=== PATIENT | male | born 1955 | race Caucasian/White ===

== ENCOUNTER → 2024-01-04 08:18 | Outpatient (REF) | payer MEDICARE, SELFPAY | LOC: RCS 08:18 | PROVIDERS: ATTENDING PHYSICIAN Internal Medicine Cardiovascular Disease; FAMILY PHYSICIAN Family Medicine | DX: R06.09 Other forms of dyspnea (principal) | CPT/HCPCS: 93017; 93350 ==

== ENCOUNTER → 2024-01-12 13:32 | Outpatient (REF) | payer MEDICARE, SELFPAY | LOC: RCS 13:32 | PROVIDERS: ATTENDING PHYSICIAN Internal Medicine Cardiovascular Disease; FAMILY PHYSICIAN Family Medicine | DX: R06.09 Other forms of dyspnea (principal) | CPT/HCPCS: 93306 ==

== ENCOUNTER → 2024-02-16 08:12 | Outpatient (REF) | payer MEDICARE, SELFPAY | LOC: RAD 08:12 | PROVIDERS: ATTENDING PHYSICIAN Family Medicine | DX: Z13.6 Encounter for screening for cardiovascular disorders (principal) | CPT/HCPCS: 75571 ==

== ENCOUNTER → 2024-02-17 12:31 | Outpatient (REF) | payer MEDICARE, SELFPAY | LOC: MRI 3T 12:31 | PROVIDERS: ATTENDING PHYSICIAN Otolaryngology; FAMILY PHYSICIAN Family Medicine | DX: H90.A21 Sensorineural hearing loss, unilateral, right ear, with restricted hearing on the contralateral side (principal) | CPT/HCPCS: 70553; A9575 ==

== ENCOUNTER → 2024-05-17 10:30 | Outpatient (REF) | payer MEDICARE, SELFPAY ==
[2024-05-17 11:38] LABS: ALT (SGPT) 26 U/L (0-50); AST (SGOT) 28 U/L (17-59); Albumin 4.6 g/dl (3.5-5.0); Alkaline Phosphatase 72 U/L (38-126); Blood Urea Nitrogen 16 mg/dl (9-20); Calcium 9.6 mg/dl (8.4-10.2); Carbon Dioxide 23 mmol/L (22-30); Chloride 102 mmol/L (98-107); Glucose 95 mg/dl (70-99); HDL Cholesterol 36 mg/dl; LDL Cholesterol, Calculated 25 mg/dl; Potassium 4.4 mmol/L (3.5-5.1); Sodium 138 mmol/L (135-145); Total Cholesterol 86 mg/dl (50-199); Total Protein 7.1 g/dl (6.3-8.2); Triglyceride 126 mg/dl (10-149); Very Low Density Lipoprotein 25 mg/dl (0-30); eGFR > 60.00
== END ==
LOC: REG 10:30
PROVIDERS: ATTENDING PHYSICIAN Family Medicine
DX: E78.5 Hyperlipidemia, unspecified (principal)
CPT/HCPCS: 36415; 80053; 80061

== ENCOUNTER 2024-08-26 13:23 | Inpatient (IN) | payer MEDICARE, SELFPAY ==
[2024-08-26] VITALS (15 sets, daily range): BP systolic 101–141; BP diastolic 61–110; BMI 31.3
[2024-08-26 08:05] LABS: % Basophils 0.4 % (0-2); % Eosinophils 0.1 % (0-6); % Immature Granulocytes 0.6 % (0-0.5); % Lymphocytes 7.2 % (20.5-51.1); % Monocytes 8.2 % (1.7-9.3); % Neutrophils 83.5 % (42.2-75.2); Absolute Basophils 0.1 10^3/uL (0-0.2); Absolute Immature Granulocytes 0.1 10^3/uL (0-0.05); Absolute Lymphocytes 0.9 10^3/uL (1.2-3.4); Hematocrit 36.1 % (39.0-52.0); Hemoglobin 12.3 g/dL (13.0-18.0); Mean Corp Hgb Conc. 34.1 g/dL (33.0-37.0); Mean Corpuscular Hgb 32.7 pg (27.0-31.0); Mean Platelet Volume 10.2 fL (7.4-10.4); Nucleated Red Blood Cells % 0 % (-); Platelet Count 246 10^3/uL (130-400); Red Blood Cell Count 3.76 10^6/uL (4.70-6.10); Red Cell Dist. Width 13.2 % (11.5-14.5)
[2024-08-26 08:17] LABS: ALT (SGPT) 37 U/L (0-50); AST (SGOT) 31 U/L (17-59); Albumin 4.1 g/dl (3.5-5.0); Alkaline Phosphatase 85 U/L (38-126); Blood Urea Nitrogen 18 mg/dl (9-20); Calcium 8.3 mg/dl (8.4-10.2); Carbon Dioxide 21 mmol/L (22-30); Chloride 98 mmol/L (98-107); Glucose 138 mg/dl (70-99); Lipase 55 U/L (23-300); Potassium 4.1 mmol/L (3.5-5.1); Sodium 132 mmol/L (135-145); Total Bilirubin 1.8 mg/dl (0.2-1.3); Total Protein 6.7 g/dl (6.3-8.2); eGFR > 60.00
[2024-08-26 08:27] LABS: Troponin I < 0.012 ng/ml
[2024-08-26 08:33] LABS: Urine Albumin 2+ (Neg - Trace); Urine Bilirubin Negative (Negative); Urine Character Clear (Clear); Urine Color Yellow; Urine Glucose Negative (Negative); Urine Ketone 2+ (Negative); Urine Leukocyte Negative (Negative); Urine Nitrite Negative (Negative); Urine Occult Blood Negative (Negative); Urine Specific Gravity 1.015 (<1.030); Urine Urobilinogen 2+ (Neg - 1+)
[2024-08-26 09:48] LABS: Urine Mucus Many
[2024-08-26 09:49] LABS: Urine Amorphous Seen
[2024-08-26 09:50] LABS: Urine Red Blood Cell 0-2 /HPF (0-2); Urine White Cell 0-2 /HPF (0-5)
--- NOTE | 2024-08-26 11:39 | ED.GENMED ---
History of Present Illness
General
Chief Complaint: Abdominal Pain
Time Seen by Provider: 08/26/24 09:08
History of Present Illness
History of Present Illness:
69-year-old male presents to the emergency department for evaluation of upper abdominal pain ongoing for the past week. He associates this with mild nausea but no vomiting. No diarrhea. He does have pain that radiates toward the chest whenever he
lies flat and pain is mildly pleuritic in nature. No fevers or chills. No prior abdominal surgeries.
Review of Systems
Review of Systems
Allergies reviewed?: Yes
All Other Systems: ROS reviewed and negative except as documented in HPI and ROS
Phy Exam
Physical Exam
Physical Exam:
GEN: Well appearing, NAD, WDWN
Eyes: PERRLA, EOMs intact, no scleral icterus
HENT: NCAT, oral mucosa moist
Lungs: CTAB, no wheezes, rales, rhonchi, normal chest wall excursion
Cardiac: RRR, no M/R/G, no peripheral edema. Radial pulses 2+ bilat
Abdomen: Soft, moderate right upper quadrant tenderness with positive Greer sign
Neuro: AO x 3
MSK: No gross deformity or ecchymosis. No edema. No digital clubbing
Skin: No rashes, petechiae. Normal color, no pallor or jaundice.
Psych: Calm, cooperative, proper hygiene
Course
Orders/Labs/Results
Orders:
Orders
08/26/24 07:33
Electrocardiogram (*1) Urgent
Reason for Study: Abdominal Pain
EKG- Treatment ONCE
08/26/24 07:49
C-Reactive Protein Urgent
Complete Blood Count/With Diff Urgent
Comprehensive Metabolic Panel Urgent
Erythrocyte Sed Rate Urgent
Lipase Urgent
Troponin I Urgent
Urinalysis Reflex To Culture Urgent
Date Specimen was Collected: 08/26/24
Time Specimen was Collected: 07:33
Urine Microscopic Reflex Cult Urgent
08/26/24 09:28
CT Abd/Pel (IV only)-DH only Urgent
Comment:
Reason For Exam: abd pain
08/26/24 11:25
Add On- LAB Urgent
Tests Added?: ESR, CRP
08/26/24 11:37
Piperacillin/Tazo 3.375 Gram [Zosyn] 3.375 gram in 50 ml IV NOW
08/26/24 11:40
Echo 2D MMode Color/Doppler Urgent
Reason for Study: large pericardial effusion on CT scan
Abnormal Lab Results
08/26/24
07:49
WBC 12.0 H 10^3/uL
(4.8-10.8)
RBC 3.76 L 10^6/uL
(4.70-6.10)
Hgb 12.3 L g/dL
(13.0-18.0)
Hct 36.1 L %
(39.0-52.0)
MCV 96.0 H fL
(80.0-94.0)
MCH 32.7 H pg
(27.0-31.0)
Abs Immat Gran (auto) 0.1 H 10^3/uL
(0-0.05)
Absolute Neuts (auto) 10.0 H 10^3/uL
(1.4-6.5)
Absolute Lymphs (auto) 0.9 L 10^3/uL
(1.2-3.4)
Absolute Monos (auto) 1.0 H 10^3/uL
(0.1-0.6)
Immature Gran % 0.6 H %
(0-0.5)
Neutrophils % 83.5 H %
(42.2-75.2)
Lymphocytes % 7.2 L %
(20.5-51.1)
Sodium 132 L mmol/L
(135-145)
Carbon Dioxide 21 L mmol/L
(22-30)
Glucose 138 H mg/dl
(70-99)
Calcium 8.3 L mg/dl
(8.4-10.2)
Total Bilirubin 1.8 H mg/dl
(0.2-1.3)
Urine Ketones 2+ A
(Negative)
Urine Urobilinogen 2+ A
(Neg - 1+)
Urine Albumin (Reflex) 2+ A
(Neg - Trace)
08/26/24 07:49
08/26/24 07:49
Vital Signs
Initial and Last Documented VS:
Initial Vital Signs
Temp Pulse Resp BP Pulse Ox
98.8 F 99 16 141/110 98
08/26/24 07:28 08/26/24 07:28 08/26/24 07:28 08/26/24 07:28 08/26/24 07:28
Last Documented Vital Signs
Temp Pulse Resp BP Pulse Ox
98.8 F 99 18 115/86 97
08/26/24 07:28 08/26/24 11:00 08/26/24 11:00 08/26/24 11:00 08/26/24 11:00
MDM/Problems Addressed
MDM/Problems Addressed:
I suspect the patient's acute abdominal pain is secondary to cholecystitis given the CT findings and focal tenderness. However incidentally he is noted to have a quite large pericardial effusion, at this time he is stable with no signs of cardiac
tamponade, will admit to the hospitalist service for IV antibiotics, consultations for general surgery as well as cardiology requested
*Critical Care Note
Total Time (30-74mins, 75-104mins- exclusive of procedures): Not Applicable
ED Attending Note
-
Portions of this chart may have been created with voice recognition software.� Occasional wrong word or��sound alike� substitutions may have occurred due to the inherent limitations of voice recognition software.
Discharge Plan
Departure
Patient Disposition: Admit
Date of Disposition: 08/26/24
Time of Disposition: 11:40
Admit to: Med/Surg
Presentation/result/management discussed w/ accepting /: Hospitalist
Discharge Problem:
Acute cholecystitis, Pericardial effusion
Prescriptions:
No Action
atorvastatin [Lipitor] 40 mg Tablet
40 mg PO QPM
alprazolam [Xanax] 0.25 mg Tablet
0.125 mg PO HS
sertraline 25 mg Tablet
37.5 mg PO DAILY
tadalafil 5 mg Tablet
5 mg PO DAILY
cyanocobalamin (vitamin B-12) 1,000 mcg Tablet
1,000 mcg PO DAILY
aspirin 81 mg Tablet,Delayed Release (Dr/Ec)
81 mg PO DAILY
acetaminophen [Tylenol Extra Strength] 500 mg Tablet
1,000 mg PO BIDPRN PRN (Reason: mild pain)
ascorbic acid (vitamin C) [Vitamin C] 500 mg Tablet
500 mg PO DAILY
calcium carbonate [Tums] 200 mg calcium (500 mg) Tablet,Chewable
200 mg PO BIDPRN PRN (Reason: gerd)
loratadine [Claritin] 10 mg Tablet
10 mg PO DAILY
cholecalciferol (vitamin D3) [Vitamin D3] 25 mcg (1,000 unit) Tablet
25 mcg PO DAILY
omeprazole 20 mg Tablet,Delayed Release (Dr/Ec)
20 mg PO DAILY
Referrals:
Benigno Matias DO [Family Provider] -
Interventions
Interventions:
*Risk Screen - Suicide Last Done: 08/26/24 07:28
ED- Fall Risk Assessment Last Done: 08/26/24 09:51
OH-Jnfsro-Fvcmunddge Assessment Last Done: 08/26/24 09:51
Discharge Date and Time
Print Language: SLOVAK
[2024-08-26] MEDS: ZOSYN 50 IV (11:44)
--- NOTE | 2024-08-26 12:08 | HPS.HSE ---
Family Physician
-
Family Physician: Benigno Matias
Chief Complaint
-
Shortness of breath x 1 month, chronic cough, right sided rib pain/abdominal pain post chiropractic, body aches
History of Present Illness
69-year-old male complaining of abdominal pain with bodyaches, occasional headache he states due to pain, nausea, lack of appetite. That started 8 days ago after a chiropractic adjustment. He states he normally does not have this typical kind of
adjustment where he appeared to be bent over with his neck in a downward position and the chiropractor pushed hardly between his shoulder blades. He states he went home then started developing right sided back and rib pain including right upper
quadrant pain. He states the pain has been on and off for the past 8 days varying in intensity causing nausea and lack of appetite. He has not had fever, chills, vomiting, diarrhea, constipation, chest pain, palpitations, urinary symptoms. He
does complain also of a chronic cough worse with lying down over the past week but shortness of breath persistent since having COVID in June 2024. He also complains of dyspnea on exertion since June. He denies any recent travel, sick
contacts. He is flu vaccinated. He did not have any recent COVID-vaccine.
He has past medical history of GERD, HLD, depression, anxiety, erectile dysfunction.
Medical History
Past Medical History
Past Medical History: Reports Other
Additional Past Medical History:
GERD
HLD
depression
anxiety
erectile dysfunction
Past Surgical History: Reports Tonsilectomy
Social History
Tobacco: Non-smoker
Alcohol: Occasional
Drug: None
Family History
Family History: Other (Mother in his sleep history of diabetes, father CAD CO CABG started age 33 age 57)
Allergies / Home Medications
Allergies reflects when Allergies were last updated in [facility].
Home Medications with original date entered in [facility]
Allergy/Medication List:
Allergies
Allergy/AdvReac Type Severity Reaction Status Date / Time
cefaclor [From [facility]] Allergy Unknown Verified 08/26/24 07:32
Sulfa (Sulfonamide Allergy Unknown Verified 08/26/24 07:32
Antibiotics)
Home Medications
acetaminophen 500 mg tablet (Tylenol Extra Strength) 1,000 mg PO BIDPRN PRN mild pain 08/26/24
alprazolam 0.25 mg tablet (Xanax) 0.125 mg PO HS 08/26/24
ascorbic acid (vitamin C) 500 mg tablet (Vitamin C) 500 mg PO DAILY 08/26/24
aspirin 81 mg tablet,delayed release 81 mg PO DAILY 08/26/24
atorvastatin 40 mg tablet (Lipitor) 40 mg PO QPM 08/26/24
calcium carbonate (Tums) 200 mg PO BIDPRN PRN gerd 08/26/24
cholecalciferol (vitamin D3) 25 mcg (1,000 unit) tablet (Vitamin D3) 25 mcg PO DAILY 08/26/24
cyanocobalamin (vitamin B-12) 1,000 mcg tablet 1,000 mcg PO DAILY 08/26/24
loratadine 10 mg tablet (Claritin) 10 mg PO DAILY 08/26/24
omeprazole 20 mg tablet,delayed release 20 mg PO DAILY 08/26/24
sertraline 25 mg tablet 37.5 mg PO DAILY 08/26/24
tadalafil 5 mg tablet 5 mg PO DAILY 08/26/24
Review of Systems
-
History Source: Patient
A 12 point ROS was completed and negative except as noted: Yes
Constitutional: Denies Fever, Fatigue or Chills
Cardiac: Denies Chest Pain, Diaphoresis, Palpitations or Syncope
Abdomen/GI: Reports Abdominal Pain and Nausea; Denies Vomiting, Diarrhea, Constipated, Bloody Stools or Black Stools
: Denies Dysuria, Frequency, Flank Pain, Incontinence, Difficulty Voiding or Urgency
Musculoskeletal: Denies Joint Pain or Edema
Skin: Denies Itching or Rash
Neurological: Denies Dizzy or Headache
Endocrine: Reports No Symptoms
Hematologic/Lymphatic: Reports No Symptoms
Psych: Reports Calm
Physical Exam
Vital Signs
Vital Signs
Temp Pulse Resp BP Pulse Ox
98.8 F 99 18 115/86 97
08/26/24 07:28 08/26/24 11:00 08/26/24 11:00 08/26/24 11:00 08/26/24 11:00
Physical Exam
General: Conversant, Pain (Right upper quadrant/rib area on deep palpation and with movement especially lying down) and Chills; No Fever
HEENT: NormoCephalic, Anicteric, Moist mucous membranes, PERRLA, [place] Conjunctivae, No Ptosis and Neck Nontender
Respiratory: Clear; No Wheezes, Rales or Rhonchi
Cardiac: S1/S2 and Regular Rhythm; No Murmur, Rub, Gallop or Peripheral Edema
Breast: Deferred by me
GI: Soft, Non Distended, Tender (Slight tenderness right upper quadrant just at level of lower rib) and No Hepatosplenomegaly
Genito-urinary: Deferred by me
Musculoskeletal: No Clubbing, No Cyanosis and No Edema
Skin: Warm and Dry; No Rash
Neuro: AO x 3, No Motor Deficits, Nonfocal/grossly intact, Cranial Nerves Intact and No Sensory Deficits; No Slurred Speech, Facial Droop, Tremors or Sedated
Psych: Calm
Laboratory Results
-
08/26/24 07:49
08/26/24 07:49
Laboratory Results
Total Bilirubin 1.8 mg/dl (0.2-1.3) H 08/26/24 07:49
AST 31 U/L (17-59) 08/26/24 07:49
ALT 37 U/L (0-50) 08/26/24 07:49
Alkaline Phosphatase 85 U/L (38-126) 08/26/24 07:49
Troponin I < 0.012 ng/ml 08/26/24 07:49
Lipase 55 U/L (23-300) 08/26/24 07:49
Impression/Plan
-
Impression/plan:
Admit to IVU
#Large pericardial effusion likely post viral(recent COVID infection 1 month ago June 2024)
#Possible new RBBB
-Consult [facility] cardiology
- Stat 2D echo
-CRP, ESR
-N.p.o. for Media/Instructional Designer to drain pericardial effusion with fluid analysis
-Will require likely 3 months of colchicine Cardiology to determine
EKG: Sinus rhythm with fusion complexes 98 bpm, QTc 497 MS, RBBB
2D echo 01/12/2024: EF 55%, normal LVS LVSF no wall abnormalities normal diastolic function, mild MR
CT abdomen pelvis with IV contrast only:
1. LARGE PERICARDIAL EFFUSION.
2. Small bilateral pleural effusions with accompanying bilateral lower lobe opacification compatible with subsegmental atelectasis and/or pneumonia.
3. Somewhat contracted gallbladder containing tiny stones and/or sludge. Cannot exclude gallbladder wall thickening or pericholecystic fluid. No findings to suggest biliary tract dilatation.
4 Consider Abdominal ultrasound for more complete evaluation, if clinically warranted.
5. mild hepatomegaly.
6. Descending colon and sigmoid diverticulosis, limited in evaluation without oral contrast. No intestinal obstruction or free air.
7. Unremarkable appendix.
8. 2.3 cm right renal cyst.
9. Small high attenuation density within nondilated distal small bowel, most likely differential diagnostic possibilities would be undigested medication, gallstone or foreign body.
#Acute right-sided abdominal pain likely secondary to chiropractic adjustment
WBC 12 with left shift, HR 99, 98.8F, 115/86
-IV Zosyn was given in ER based on CT abdomen concern for possible cholecystitis given Pericholecystic fluid
Abdominal ultrasound shows single gallstone, gallbladder wall thickening, no tenderness on exam, no dilated ducts
#GERD
Iv Protonix 40 mg daily patient takes omeprazole 20 mg p.o. daily
#HLD
Check lipid profile
Continue atorvastatin 40 mg every afternoon
#Depression/anxiety
Continue Zoloft 37.5 mg daily, Xanax 0.125 mg p.o. at bedtime
DVT prophylaxis
SCDs
Full code
[2024-08-26 12:40] LABS: Erythrocyte Sed Rate 51 mm/hour (0-20)
--- NOTE | 2024-08-26 12:42 | CON.CAR ---
Addendum entered and electronically signed by Sterling Torres MD 08/26/24 14:03:
69-year-old man with hyperlipidemia, right bundle branch block, GERD, BPH and an elevated coronary artery calcium score with abdominal distention, nausea and left costal margin pain temporally related to manipulation by chiropractor. CT of abdomen
and pelvis obtained when he presented to the emergency department after seeing Dr. Matias in the digital producer hours showed a contracted gallbladder possibly with stones but a large pericardial effusion. Echocardiography thereafter confirmed a
large pericardial effusion with evidence of hemodynamic compromise, with right ventricular diastolic collapse. Pulmonary hypertension presents. Pericardial effusion circumferential and up to 2.9 cm in depth. He has a cough, mild dyspnea on
exertion, perhaps mild left shoulder discomfort worse supine though this is equivocal. He had COVID in June
PMH: As listed above
SH: , children, retired from executive position at [employer], was planning to travel to [facility] in a.m.
PSH: Tonsillectomy, third molar extraction
Non-smoker, occasional alcohol
FH: Noncontributory
Allergies: Sulfa and cephalosporins
Meds: Per summary sheet
115/86, pulse 99, respirate 18, head neck exam unremarkable lungs with minimal decrease in bases, relatively soft heart tones, possible soft friction rub, though equivocal, JVD probably at least 10-15, abdomen nontender, slightly distended, not much
lower extremity edema
White count 12, hemoglobin 12.3, platelets 246, sed rate 51, sodium 132, CO2 21, BUN and creatinine 18 and 0.9, C-reactive protein 205, undetectable troponin good
ECG sinus rhythm right bundle, left axis impression:
Echo: As described above
Impression:
Large pericardial effusion/early tamponade
Recent COVID infection
Right bundle branch block
Hyperlipidemia
GERD
Plan:
He presents with early tamponade presumably precipitated by COVID in June of this year. This may account for symptoms of nausea, bloating etc. At this point for step will be pericardiocentesis. He will need colchicine.
Management of possible cholecystitis per primary team. Suspect symptoms may resolve post pericardiocentesis.
Further management to be determined by his clinical course.
Original Note:
Consultation
Consultation Request
Date/Time Consultation Requested: 08/26/2024
Date/Time Consultation Performed: 08/26/2024
Requesting Provider: Judi SHARMA
Performing Provider: Marielena Islas PA-C for Dr. MYLA Torres
Reason for Consultation: Large pericardial effusion
Medical History
-
History of Present Illness:
HPI: Sterling is a 69 year old male with PMH of HLD, elevated coronary calcium score, RBBB, GERD, BPH, and anxiety who presented to [facility] for evaluation of nausea and abdominal pain. He has had no vomiting or diarrhea. Does note some pain that radiates
into chest, worse with lying flat. Denies any fevers or chills. Denies any dizziness or lightheadedness. In ER, CT of abdomen and pelvis showed contracted gallbladder containing stones and/or sludge as well as large pericardial effusion. Given large
pericardial effusion, cardiology consulted and order was placed for urgent echo. Echo revealed large circumferential pericardial effusion with some evidence of RV compression. BP has been stable, but HR is mildly elevated. He feels well currently
but with lying back begins to cough. Notes he has had a cough and some increased SOB since having Covid June 2024.
PMH:
HLD
Elevated coronary calcium score
Family h/o CAD
RBBB
GERD
BPH
Anxiety
Past Medical History
Past Medical History: Other (In HPI)
Past Surgical History: Tonsilectomy and Other (wisdom tooth removal)
Social History
Tobacco: Non-Smoker
Alcohol: Occasional
Drug: None
Living: With Family
Family History
Family History: CAD and Diabetes
Allergies / Home Medications
Allergy/AdvReac Type Severity Reaction Status Date / Time
cefaclor [From Ceclor] Allergy Unknown Verified 08/26/24 07:32
Sulfa (Sulfonamide Allergy Unknown Verified 08/26/24 07:32
Antibiotics)
�Medication �Instructions �Recorded �Confirmed �Type
acetaminophen 500 mg tablet 1,000 mg PO BIDPRN PRN mild pain 08/26/24 08/26/24 History
(Tylenol Extra Strength)
alprazolam 0.25 mg tablet (Xanax) 0.125 mg PO HS 08/26/24 08/26/24 History
ascorbic acid (vitamin C) 500 mg 500 mg PO DAILY 08/26/24 08/26/24 History
tablet (Vitamin C)
aspirin 81 mg tablet,delayed 81 mg PO DAILY 08/26/24 08/26/24 History
release
atorvastatin 40 mg tablet (Lipitor) 40 mg PO QPM 08/26/24 08/26/24 History
calcium carbonate (Tums) 200 mg PO BIDPRN PRN gerd 08/26/24 08/26/24 History
cholecalciferol (vitamin D3) 25 25 mcg PO DAILY 08/26/24 08/26/24 History
mcg (1,000 unit) tablet (Vitamin
D3)
cyanocobalamin (vitamin B-12) 1,000 mcg PO DAILY 08/26/24 08/26/24 History
1,000 mcg tablet
loratadine 10 mg tablet (Claritin) 10 mg PO DAILY 08/26/24 08/26/24 History
omeprazole 20 mg tablet,delayed 20 mg PO DAILY 08/26/24 08/26/24 History
release
sertraline 25 mg tablet 37.5 mg PO DAILY 08/26/24 08/26/24 History
tadalafil 5 mg tablet 5 mg PO DAILY 08/26/24 08/26/24 History
Review of Systems
-
History Source: Patient
All other systems: Negative unless noted
Physical Exam
Vital Signs
Temp Pulse Resp BP Pulse Ox
98.8 F 99 18 115/86 97
08/26/24 07:28 08/26/24 11:00 08/26/24 11:00 08/26/24 11:00 08/26/24 11:00
Lab Results
08/26/24 07:49
08/26/24 07:49
Troponin I < 0.012 ng/ml 08/26/24 07:49
Physical Exam
General: Well Developed, Well Nourished and No Apparent Distress
HEENT: Normocephalic, Anicteric and Moist Mucous Membranes
Respiratory: Clear and Non Labored Respirations
Cardiac: S1/S2 and Regular Rhythm
Musculoskeletal: No Clubbing, No Cyanosis and No Edema
Skin: Warm and Dry
Neuro: AO x 3 and Nonfocal/Grossly Intact
Psych: Calm
Impression / Plan
-
PCP: Dr. Matias
Director Investor Relations: Dr. Duncan
Impression:
Presented with RUQ abdominal pain, nausea, and SOB
Large circumferential pericardial effusion
HLD
Elevated coronary calcium score
Family h/o CAD
RBBB
GERD
BPH
Anxiety
Echo 01/12/2024: EF 55%, mild MR, upper normal aortic root for body surface area
Echo 08/26/2024: Study completed, official report pending.
Plan:
-Presented with abdominal pain, nausea, and SOB. Found to have large pericardial effusion on CT of abdomen/pelvis resulting in cardiology consult.
-Urgent echo ordered and revealed large circumferential pericardial effusion w/ evidence of RV collapse.
-BP stable, but HR somewhat elevated. Will plan to take to field laborer for pericardiocentesis.
-Also concern for possible cholecystitis by CT of abdomen and pelvis, however less likely based on exam. Abdominal US ordered by primary service.
-Suspect symptoms mostly related to pericardial effusion.
-ESR elevated at 51, CRP pending.
-He did have Covid 06/2024. No URI symptoms currently.
-ECG reviewed. SR with RBBB. HR 98 bpm.
-Troponin negative x 1.
-Further recommendations to be made post-pericardiocentesis.
HPI: Sterling is a 69 year old male with PMH of HLD, elevated coronary calcium score, RBBB, GERD, BPH, and anxiety who presented to [facility] for evaluation of nausea and abdominal pain. He has had no vomiting or diarrhea. Does note some pain that radiates
into chest, worse with lying flat. Denies any fevers or chills. Denies any dizziness or lightheadedness. In ER, CT of abdomen and pelvis showed contracted gallbladder containing stones and/or sludge as well as large pericardial effusion. Given large
pericardial effusion, cardiology consulted and order was placed for urgent echo. Echo revealed large circumferential pericardial effusion with some evidence of RV compression. BP has been stable, but HR is mildly elevated. He feels well currently
but with lying back begins to cough. Notes he has had a cough and some increased SOB since having Covid June 2024.
Data Reviewed
-
EKG: Tracing Personally Visualized and interpreted
CT Scan: Report Reviewed by me
Medical Tests (Nuc Med, Echo etc): Discussed with Physician
Labs: Labs Reviewed by me
Old Records: Reviewed
[2024-08-26 13:37] LABS: COVID-19 Antigen Negative (Negative)
--- NOTE | 2024-08-26 14:21 | CON.GS ---
Addendum entered and electronically signed by Shwan Waldron MD 08/26/24 18:02:
Patient seen and examined independently of surgical nurse practitioner. Agree with documented consultation consistent with my current evaluation this evening with additions/details noted here.
HPI: 69-year-old male presenting to the emergency department secondary to a 2-week history of progressive epigastric/substernal/left upper quadrant abdominal pain, dry cough, anorexia and mild nausea. His symptoms have been rather slow and
insidious in onset over this time period. It is not worse by eating or postprandial nature. He has generally been eating less secondary to lack of appetite but not out of food aversion due to pain. No similar episodes like this in the past. He
did recently have COVID in June and he was initially thinking that he was having similar rebound symptoms this month or possible reinfection. Presented to the emergency department secondary to severity and persistence of his symptoms. General
surgery consultation requested after CT imaging identified possible gallbladder thickening/pericholecystic fluid.
Subsequent ultrasound of the abdomen was obtained identifying 1 gallstone within the gallbladder body but no stone in the neck. Some gallbladder wall thickening but no pericholecystic fluid. Negative sonographic Greer sign. No biliary ductal
dilation.
At the time of this current evaluation post pericardiocentesis the patient reports significant relief of his presenting symptoms. He is beginning to eat his dinner tray.
PMH: GERD, BPH, hyperlipidemia, recent COVID. No past abdominal surgical history
Temperature 102.5, vital signs stable
No acute distress awake alert oriented x 3, daughter is at bedside.
Abdomen: Soft, nondistended, mild tenderness palpation left side and epigastrium. No tenderness palpation right upper quadrant. Negative Greer sign. No palpable right upper quadrant fullness or mass.
Assessment/plan: 69-year-old male with large pericardial effusion/early tamponade, recent COVID infection and abnormal imaging of the gallbladder
Clinically improved after pericardiocentesis
I suspect the gallbladder thickening identified on imaging studies may be reflective of hepatic congestion in the setting of his large pericardial effusion and early tamponade and therefore reactive in nature rather than a primary gallstone mediated
pancreatitis.
Gallbladder will be followed expectantly
Diet as tolerated
If future concerns regarding possible gallbladder pathology would obtain HIDA scan however at this point there are no clinical indications to pursue further gallbladder testing/evaluations
Signing off, please call if we can be of further assistance with patient's care during hospitalization
Original Note:
Medical History
-
Chief Complaint: epigastric discomfort
History of Present Illness:
Mr Salas is a 69 yo male with a h/o GERD, BPH, HLD and recent covid infection last month who presents with dry cough and epigastric pain across his upper abdomen acutely worsening over the past week accompanied by nausea and anorexia. He does not
note an association with food but does feel that the pain is more positional and is worse when he lies flat. He denies bladder or bowel changes. He denies fevers or chills. On exam, he is tender to the upper abdomen lower thoracic area left side
worse than right side.
Past Medical History
Past Medical History: GERD, Hypercholesterolemia and Other (rBBB. BPH)
Past Surgical History: Tonsilectomy
Social History
Tobacco: Non-Smoker
Alcohol: None
Family History
Family History: Reviewed & Not Pertinent
Allergies / Home Medications
Allergy/AdvReac Type Severity Reaction Status Date / Time
cefaclor [From Ceclor] Allergy Unknown Verified 08/26/24 07:32
Sulfa (Sulfonamide Allergy Unknown Verified 08/26/24 07:32
Antibiotics)
�Medication �Instructions �Recorded �Confirmed �Type
acetaminophen 500 mg tablet 1,000 mg PO BIDPRN PRN mild pain 08/26/24 08/26/24 History
(Tylenol Extra Strength)
alprazolam 0.25 mg tablet (Xanax) 0.125 mg PO HS 08/26/24 08/26/24 History
ascorbic acid (vitamin C) 500 mg 500 mg PO DAILY 08/26/24 08/26/24 History
tablet (Vitamin C)
aspirin 81 mg tablet,delayed 81 mg PO DAILY 08/26/24 08/26/24 History
release
atorvastatin 40 mg tablet (Lipitor) 40 mg PO QPM 08/26/24 08/26/24 History
calcium carbonate (Tums) 200 mg PO BIDPRN PRN gerd 08/26/24 08/26/24 History
cholecalciferol (vitamin D3) 25 25 mcg PO DAILY 08/26/24 08/26/24 History
mcg (1,000 unit) tablet (Vitamin
D3)
cyanocobalamin (vitamin B-12) 1,000 mcg PO DAILY 08/26/24 08/26/24 History
1,000 mcg tablet
loratadine 10 mg tablet (Claritin) 10 mg PO DAILY 08/26/24 08/26/24 History
omeprazole 20 mg tablet,delayed 20 mg PO DAILY 08/26/24 08/26/24 History
release
sertraline 25 mg tablet 37.5 mg PO DAILY 08/26/24 08/26/24 History
tadalafil 5 mg tablet 5 mg PO DAILY 08/26/24 08/26/24 History
Review of Systems
-
History Source: Patient and Family
All other systems: Negative unless noted
A 10 point review of systems was completed, and was negative except as per HPI.
Physical Exam
Vital Signs
Temp Pulse Resp BP Pulse Ox
98.8 F 99 18 115/86 97
08/26/24 07:28 08/26/24 11:00 08/26/24 11:00 08/26/24 11:00 08/26/24 11:00
08/25/24 08/26/24 08/27/24
06:59 06:59 06:59
Actual Weight 99 kg
Body Mass Index (BMI) 31.3
Lab Results
08/26/24 07:49
08/26/24 07:49
WBC 12.0 10^3/uL (4.8-10.8) H 08/26/24 07:49
Hgb 12.3 g/dL (13.0-18.0) L 08/26/24 07:49
Hct 36.1 % (39.0-52.0) L 08/26/24 07:49
Plt Count 246 10^3/uL (130-400) 08/26/24 07:49
Abs Immat Gran (auto) 0.1 10^3/uL (0-0.05) H 08/26/24 07:49
Neutrophils % 83.5 % (42.2-75.2) H 08/26/24 07:49
Physical Exam
General: Well Developed and Well Nourished
HEENT: Moist Mucous Membranes
Respiratory: Other (dry spastic cough with speech)
GI: Soft and Tender (LUQ>RUQ)
Skin: Warm and Dry
Neuro: Awake, Alert and AO x 3
Psych: Calm
Data Reviewed
-
CT Scan: Image Personally Visualized and interpreted, Report Reviewed by me, Discussed with Physician, Discussed with Nurse, Discussed with Patient and Discussed with Family
Labs: Labs Reviewed by me, Discussed with Physician, Discussed with Nurse, Discussed with Patient and Discussed with Family
Old Records: Reviewed
Assessment / Plan
-
69 yo male with a h/o GERD, BPH, HLD and recent covid infection last month who presents with dry cough and epigastric pain radiating across his upper abdomen predominantly on the left side which has been acutely worsening over the past week after a
chiropractic adjustment and accompanied by nausea and anorexia.
Cardiology following for early tamponade and pericardial effusion with pericardiocentesis planned today.
Cholelithiasis with gallbladder wall thickening noted on US as well as CT imaging. Greer's sign is negative on exam and US. He does have mild RUQ tenderness with nausea/anorexia; however the majority of his pain is to the left side. Mild
leukocytosis, afebrile. Bilirubin elevated to 1.8. Mild tachycardia present. Low suspicion for acute gallbladder pathology.
--Fractionate bilirubin, follow LFT's
--May need HIDA scan if symptoms not improving, will hold off for now
[2024-08-26 15:12] LABS: Direct Bilirubin 0.9 mg/dl (0.0-0.4)
--- NOTE | 2024-08-26 15:47 | ITS.CL.CATH ---
Customs Appraiser - Catheterization
Cardiac Catheterization
Procedure Report:
PERICARDIOCENTESIS REPORT
DATE: August 26, 2024
REFERRING: Dr. Sterling Torres
INDICATIONS: Large symptomatic pericardial effusion
PROCEDURAL DETAILS: Informed consent was obtained. A subxiphoid approach was utilized to gain access to the pericardial space with a micropuncture needle. Agitated saline contrast was injected to confirm appropriate positioning of the needle
within the pericardial space. The Stiffen wire and micro puncture sheath were inserted over the guidewire and into the pericardial space. The micropuncture sheath was removed and exchanged for a 6 Mohawk sheath and the pigtail catheter was then
advanced to the pericardial space. A total of 850 mL of bloody pericardial fluid was removed and ultrasound imaging during and postprocedure confirmed near resolution of the large pericardial effusion. The intrapericardial pressure at the
beginning of the procedure measured 22 mmHg. The intrapericardial pressure at the conclusion of the procedure with nearly all fluid removed moved measured 15 mmHg. The pericardial fluid was sent for appropriate cytology, culture, and chemistries
RADIATION SUMMARY: Fluoro Time (min): 0.2, Dose (mGy): 5.0, DAP (Gy.cm2) : 0.70
CONCLUSIONS:
1. Successful echocardiographic guided pericardiocentesis utilizing subxiphoid approach with removal of 850 mL of bloody pericardial fluid
RECOMMENDATIONS:
1. The 6 Mohawk sheath in pigtail catheter were sewn in position
Copy to: Dr. Sterling Torres
[2024-08-26 16:13] LABS: Body Fluid Glucose 94 mg/dl; Body Fluid LDH > 1000 U/L; Body Fluid Protein 6.3 g/dl
[2024-08-26] MEDS: TYLENOL 1000 MG PO (17:01)
[2024-08-26] MEDS: LIPITOR 40 MG PO (17:01)
[2024-08-26 18:24] LABS: Body Fluid Hematocrit 4.1 %
[2024-08-26 18:32] LABS: Body Fluid Granulocytes 50 %; Body Fluid Lymphocytes 41 %; Body Fluid Macrophages 9 %; Body Fluid WBC 2805 /CUMM
[2024-08-26 18:35] LABS: Body Fluid Second Tech EYM
--- NOTE | 2024-08-26 18:49 | PTCARENOTE ---
"Pt received from laboratory chemical assistant post pericardiocentesis, sub xiphoid dressing dry and intact, no sign of bleeding or hematoma, drain to gravity with minimal sanguinous drainage. Pt reports mild upper abdominal discomfort and has a temp of 102.5, "Frederick"Tay notified. Pt given tylenol. Pt OOB but he was slightly unsteady due to vestibulitis, he will call for assistance. Telemetry shows sinus rhythm @ rate @ 90's."
--- NOTE | 2024-08-26 22:05 | W.PN.UPDATE ---
Update Note
Progress Note Update
Attending note
Patient seen independently.
69-year-old man comes in complaining of abdominal pain, with body aches, occasional headache, nausea, and lack of appetite. Symptoms started 8 days ago after a chiropractic adjustment. The pain has been on and off for the past 8 days, in varying
intensity causing nausea and lack of appetite. He denies fever, chills, vomiting, diarrhea, constipation, chest pain, palpitations, urinary symptoms. He also complains of a cough worse with lying down. He has had shortness of breath persistent
since having COVID in June 2024. With dyspnea on exertion since June. He denies any recent travel, sick contacts. He is flu vaccinated. In the ED he had an echo that showed:
1. Borderline small left ventricle with preserved systolic function, EF 60-65%
2. Trace mitral regurgitation
3. Aortic sclerosis without stenosis or regurgitation
4. Dilated right ventricle with diastolic collapse of the right ventricular free wall.
Pulmonary artery systolic pressure is 50-55 mmHg
5. Large pericardial effusion with evidence of hemodynamic compromise and marked fibrinous thickening of the visceral pericardium
6. The IVC is dilated and does not collapse with respiration
Findings of pericardial effusion and hemodynamic compromise are new since the echo of March 2024.
CT in ER showed:
LARGE PERICARDIAL EFFUSION.
Small bilateral pleural effusions with accompanying bilateral lower lobe opacification compatible with subsegmental atelectasis and/or pneumonia.
Somewhat contracted gallbladder containing tiny stones and/or sludge. Cannot exclude gallbladder wall thickening or pericholecystic fluid. No findings to suggest biliary tract dilatation. Consider Abdominal ultrasound for more complete evaluation,
if clinically warranted.
Mild hepatomegaly.
Descending colon and sigmoid diverticulosis, limited in evaluation without oral contrast. No intestinal obstruction or free air.
Unremarkable appendix.
2.3 cm right renal cyst.
Small high attenuation density within nondilated distal small bowel, most likely differential diagnostic possibilities would be undigested medication, gallstone or foreign body.
The patient went to the labor relations representative to have the effusion drained. Report from the labor relations representative:
CONCLUSIONS:
1. Successful echocardiographic guided pericardiocentesis utilizing subxiphoid approach with removal of 850 mL of bloody pericardial fluid.
Past Medical History:
GERD
HLD
depression
anxiety
erectile dysfunction
Physical Exam
General: Conversant, Pain (Right upper quadrant/rib area on deep palpation and with movement especially lying down) and Chills; No Fever
HEENT: NormoCephalic, Anicteric, Moist mucous membranes, PERRLA, [place] Conjunctivae, No Ptosis and Neck Nontender
Respiratory: Clear; No Wheezes, Rales or Rhonchi
Cardiac: S1/S2 and Regular Rhythm; No Murmur, Rub, Gallop or Peripheral Edema
GI: Soft, Non Distended, Tender (Slight tenderness right upper quadrant just at level of lower rib) and No Hepatosplenomegaly
Psych: Calm
Impression/plan:
S/P pericardiocentesis - Admit to IVU
1. Large pericardial effusion, likely post viral (recent COVID infection 1 month ago June 2024)
Possible new RBBB
Consulted [facility] cardiology (appreciated)
Follow up care per cardiology
2. CT abdomen pelvis with IV contrast showing multiple findings
Review findings and make sure all are followed up as appropriate as outpatient
3. Acute right-sided abdominal pain likely secondary to chiropractic adjustment
Follow
Avoid further adjustments
Please see engine manager note for full details on:
GERD
HLD
Depression/anxiety
DVT prophylaxis SCDs
Full code
[2024-08-26] MEDS: XANAX 0.125 MG PO (22:47)
--- NOTE | 2024-08-27 01:52 | PTCARENOTE ---
Assumed care of the pt @1900. Pt AAOx3 SR on the monitor. VSS afeb Pericardial drain to gravity sm amt sanguineous. dressing with sm amt bloody drainage with marker outline. Call fields within reach
[2024-08-27 02:33] VITALS: BP 125/90
[2024-08-27] MEDS: TYLENOL 1000 MG PO ×2 (02:48→10:06)
[2024-08-27 03:04] LABS: % Basophils 0.5 % (0-2); % Eosinophils 1.2 % (0-6); % Immature Granulocytes 0.3 % (0-0.5); % Lymphocytes 14.7 % (20.5-51.1); % Monocytes 9.1 % (1.7-9.3); % Neutrophils 74.2 % (42.2-75.2); Absolute Eosinophils 0.1 10^3/uL (0-0.7); Absolute Lymphocytes 1.1 10^3/uL (1.2-3.4); Absolute Monocytes 0.7 10^3/uL (0.1-0.6); Absolute Neutrophils 5.8 10^3/uL (1.4-6.5); Hematocrit 37.7 % (39.0-52.0); Hemoglobin 12.8 g/dL (13.0-18.0); Mean Corpuscular Hgb 32.7 pg (27.0-31.0); Mean Corpuscular Volume 96.4 fL (80.0-94.0); Mean Platelet Volume 10.1 fL (7.4-10.4); Nucleated Red Blood Cells % 0 % (-); Platelet Count 237 10^3/uL (130-400); Red Blood Cell Count 3.91 10^6/uL (4.70-6.10); Red Cell Dist. Width 13.2 % (11.5-14.5); White Blood Cell Count 7.8 10^3/uL (4.8-10.8)
[2024-08-27 03:09] VITALS: BMI 29.3
[2024-08-27 03:27] LABS: ALT (SGPT) 41 U/L (0-50); AST (SGOT) 35 U/L (17-59); Albumin 4.3 g/dl (3.5-5.0); Alkaline Phosphatase 90 U/L (38-126); Blood Urea Nitrogen 18 mg/dl (9-20); Calcium 8.8 mg/dl (8.4-10.2); Carbon Dioxide 23 mmol/L (22-30); Chloride 100 mmol/L (98-107); Estimated Creatinine Clearance 87 ml/min; Glucose 117 mg/dl (70-99); HDL Cholesterol 29 mg/dl; LDL Cholesterol, Calculated 25 mg/dl; Potassium 4.1 mmol/L (3.5-5.1); Sodium 137 mmol/L (135-145); Total Bilirubin 1.6 mg/dl (0.2-1.3); Total Cholesterol 68 mg/dl (50-199); Total Protein 7.2 g/dl (6.3-8.2); Triglyceride 72 mg/dl (10-149); Very Low Density Lipoprotein 14 mg/dl (0-30); eGFR > 60.00
[2024-08-27 04:16] LABS: Hepatitis C Antibody Negative (Negative)
--- NOTE | 2024-08-27 07:13 | W.PN.HOSP.TC ---
Addendum entered and electronically signed by Madelyn Briceno MD 08/27/24 15:28:
I saw and evaluated the patient independently. I reviewed the resident�s note and agree with findings and plan as documented by Dr. Mijares.
GENERAL: well developed, well nourished, male in no apparent distress
HEENT: NC/AT
HEART: regular rate and rhythm, +S1, +S2--pericardial drain in place, leaking
LUNGS : clear to auscultation bilaterally
ABDOM: soft, nontender, nondistended, + bowel sounds
EXT: no cyanosis, clubbing, or edema
NEUROLOGIC: grossly intact
Pericardial effusion--S/p pericardiocentesis with drain--suspect due to post infection from COVID in June--Echo was done with evidence of hemodynamic compromise--Removal of 850 mL of bloody pericardial fluid, pericardial drain placed--Elevated
ESR at 51, CRP at 205--cultures pending--Follow-up echo on Thursday--Hemoglobin stable at 12.8--Start ibuprofen, colchicine
Abdominal pain--CT abdomen pelvis showed evidence of gallbladder thickening,contracted gallbladder containing tiny stones and/or sludge--Surgery consulted�suspected gallbladder thickening might be from hepatic congestion, and might be reactive in
nature--Recommend following up as outpatient as the patient's symptoms have subsided after pericardiocentesis
GERD--Continue pantoprazole
Hyperlipidemia--Continue atorvastatin
Depression/anxiety--Continue Zoloft--Xanax at bedtime
DVT prophylaxis�SCDs
Code status--Full code
Original Note:
Today's Communication/Plan
-
Repeat echo on Thursday
Continue to monitor drain output
Assessment / Plan
Assessment / Plan
69-year-old male with past medical history of hyperlipidemia, right bundle branch block, GERD presented to the ED with abdominal pain, nausea, shortness of breath and cough.
Impression/plan
Pericardial effusion
S/p pericardiocentesis�#POD 1
Likely postinfectious (patient had COVID in short of breath and had chronic cough since then)
Evaluation of his abdominal pain in the ED with CT abdomen pelvis revealed evidence of large pericardial effusion.
Echo was done with evidence of hemodynamic compromise
Patient was taken to Operation Supervisor for pericardiocentesis
Removal of 850 mL of bloody pericardial fluid, pericardial drain placed.
Elevated ESR at 51, CRP at 205
Fluid analysis�exudative
Fluid cultures pending
Continue to monitor drain output
Follow-up echo on Thursday
Hemoglobin stable at 12.8
Start ibuprofen, colchicine
Abdominal pain
CT abdomen pelvis showed evidence of gallbladder thickening,contracted gallbladder containing tiny stones and/or sludge.
Surgery consulted�suspected gallbladder thickening might be from hepatic congestion, and might be reactive in nature.
Recommend following up as outpatient as the patient's symptoms have subsided after pericardiocentesis
GERD
Continue pantoprazole
Hyperlipidemia
Continue atorvastatin
Depression/anxiety
Continue Zoloft
Xanax at bedtime
DVT prophylaxis�SCDs
Full code
Anticipated Discharge: > 48 hours
Subjective/Interval History
-
Date of Service: August 27, 2024
Patient reports his shortness of breath has improved. Pericardial drain in place.
Objective Data
-
Labs:
Laboratory Results
08/27/24
02:43
WBC 7.8
Hgb 12.8 L
Hct 37.7 L
Plt Count 237
Sodium 137
Potassium 4.1
Chloride 100
Carbon Dioxide 23
BUN 18
Creatinine 0.8
Glucose 117 H
Calcium 8.8
Total Bilirubin 1.6 H
AST 35
ALT 41
Alkaline Phosphatase 90
Vital Signs:
Vital Signs
Temp Pulse Resp BP Pulse Ox
99.1 F 98 18 125/90 98
08/27/24 03:11 08/27/24 03:11 08/27/24 03:11 08/27/24 02:33 08/27/24 03:11
I&O
08/26/24 08/27/24 08/28/24
06:59 06:59 06:59
Intake Total 240 / 240
Balance 240 / 240
Review of Systems
-
All other systems: Reviewed and negative (As per history)
Physical Exam
-
General: No Apparent Distress
HEENT: Normocephalic and Atraumatic
Respiratory: Clear to Auscultation
Cardiac: Regular Rhythm, S1/S2 and Other (Pericardial drain in place)
GI: Soft, Nontender, Nondistended and Normal Bowel Sounds
Skin: Warm and Dry
Neuro: Awake, Alert, Oriented and AO x 3
Psych: Calm
--- NOTE | 2024-08-27 07:34 | W.PN.CARDCBS ---
Addendum entered and electronically signed by Edda Montes MD 08/27/24 11:09:
Chest x-ray with left-sided and right-sided pleural effusion left significant. Await official report. Cannot clearly see pericardial drain. Will ask interventional/electrophysiology to review.
Given increased volume will give 20 of IV Lasix now. Likely will need more. Pleural effusion will need to be followed.
Addendum entered and electronically signed by Edda Montes MD 08/27/24 10:03:
I saw and examined the patient.
The Bark Press Operator's note was reviewed and I agree with the note.
Comment: Patient exam is stable. Unfortunately drain likely from pericardium was pulled back and his gown and underwear are wet. Breathing is stable. Discussed with patient, his daughter and nursing.
Large pericardial effusion with pericardial drain in place. Some symptoms consistent with pericarditis including positional chest discomfort upper chest and on presentation abdominal discomfort and shortness of breath with laying down. Shortness
of breath has resolved.
-I personally redressed his drain externally with gauze and Tegaderm with nursing at the bedside.
-I have ordered PA and lateral chest x-ray to assess position of drain.
-May need to reposition drain
-If any clinical change echocardiogram for quick look
-Hopefully draining will decrease by tomorrow and drain may be able to be pulled and then follow with echocardiogram as outpatient.
-Transudative look to fluid with increased white blood cells. Cultures, fungal cultures, pathology pending. (PSA 12/2023 was normal, abdominal CT scan without abnormality, limited CT coronary calcium score mid and lower lungs without obvious
comment of abnormality). Consider eventual CT scan of the chest.
I spent 40 minutes total critical care time [id number] and [id number]-face time with the patient making plans given position and likely pull back of pericardial drain. Plans as noted above.
Original Note:
Today's Communication / Plan
-
s/p pericardiocentesis w/ 850 cc bloody fluid removed 08/26
hgb stable
Follow drain output today and eventually check follow up echo
Impression / Plan
-
PCP: Dr. Matias
Well Drill Operator Cable Tool: Dr. Duncan
Impression:
Presented with RUQ abdominal pain, nausea, and SOB
Large circumferential pericardial effusion
s/p pericardiocentesis 08/26/2024 w/ 850 cc bloody fluid removed
HLD
Elevated coronary calcium score
Family h/o CAD
RBBB
GERD
BPH
Anxiety
Echo 01/12/2024: EF 55%, mild MR, upper normal aortic root for body surface area
Echo 08/26/2024: EF 60-65%, trace MR, aortic sclerosis without stenosis, dilated RV with diastolic collapse of the RV free wall. PASP 50-55 mmHg, large pericardial effusion with evidence of hemodynamic compromise and marked fibrinous thickening of
the visceral pericardium.
Plan:
-Presented with abdominal pain, nausea, and SOB. Found to have large pericardial effusion on CT of abdomen/pelvis resulting in cardiology consult. Urgent echo completed in ER and confirmed large pericardial effusion w/ evidence of hemodynamic
compromise.
-Interestingly, prior coronary CTA did note small volume mediastinal fluid 01/2024.
-s/p pericardiocentesis w/ 850 cc bloody pericardial fluid removed 08/26/2024.
-Drain w/ 20 cc output overnight. Continue to follow. Does note some oozing from bandage.
-Will check follow up echo once output slows.
-ESR elevated at 51, CRP 205.3. Fluid studies pending.
-Hgb stable at 12.8.
-BP/HR stable this AM.
HPI: Sterling is a 69 year old male with PMH of HLD, elevated coronary calcium score, RBBB, GERD, BPH, and anxiety who presented to [facility] for evaluation of nausea and abdominal pain. He has had no vomiting or diarrhea. Does note some pain that radiates
into chest, worse with lying flat. Denies any fevers or chills. Denies any dizziness or lightheadedness. In ER, CT of abdomen and pelvis showed contracted gallbladder containing stones and/or sludge as well as large pericardial effusion. Given large
pericardial effusion, cardiology consulted and order was placed for urgent echo. Echo revealed large circumferential pericardial effusion with some evidence of RV compression. BP has been stable, but HR is mildly elevated. He feels well currently
but with lying back begins to cough. Notes he has had a cough and some increased SOB since having Covid June 2024.
Progress Note - Well Drill Operator Cable Tool
Subjective
Date of Service: August 27, 2024
Feeling well this AM. No chest/abdominal pain or SOB.
Objective
Labs:
08/27/24 02:43
08/27/24 02:43
Labs
Hgb 12.8 g/dL (13.0-18.0) L 08/27/24 02:43
Hct 37.7 % (39.0-52.0) L 08/27/24 02:43
Plt Count 237 10^3/uL (130-400) 08/27/24 02:43
Sodium 137 mmol/L (135-145) 08/27/24 02:43
Potassium 4.1 mmol/L (3.5-5.1) 08/27/24 02:43
BUN 18 mg/dl (9-20) 08/27/24 02:43
Creatinine 0.8 mg/dL (0.7-1.3) 08/27/24 02:43
Glucose 117 mg/dl (70-99) H 08/27/24 02:43
Troponins
08/26/24
07:49
Troponin I < 0.012
Vital Signs and I&O:
Vital Signs
Temp Pulse Resp BP Pulse Ox
99.1 F 98 18 125/90 98
08/27/24 03:11 08/27/24 03:11 08/27/24 03:11 08/27/24 02:33 08/27/24 03:11
Vital Signs
Temp Pulse Resp BP Pulse Ox
99.1 F 98 18 125/90 98
08/27/24 03:11 08/27/24 03:11 08/27/24 03:11 08/27/24 02:33 08/27/24 03:11
Intake & Output
08/25/24 08/26/24 08/27/24 08/28/24
06:59 06:59 06:59 06:59
Intake Total 240 / 240
Output Total 20 / 20
Balance 240 / 240 -20 / -20
Physical Exam
Physical Exam
GEN: No distress, awake, alert, oriented x3
HEENT: supple, anicteric, mmm
LUNGS: CTA b/l, no wheezes/rales
CV: Reg, S1/S2, no murmur
EXT: No clubbing, cyanosis, or edema
NEURO: Gross non-focal
SKIN: Warm, dry, no rash.
[2024-08-27 08:14] VITALS: BP 118/70
[2024-08-27] MEDS: VITAMIN D3 (cholecalciferol) 25 MCG PO (08:25)
[2024-08-27] MEDS: VITAMIN C 500 MG PO (08:25)
[2024-08-27] MEDS: ZOLOFT 37.5 MG PO (08:25)
[2024-08-27] MEDS: VITAMIN B-12 1000 MCG PO (08:25)
[2024-08-27] MEDS: PROTONIX 40 MG PO (08:25)
[2024-08-27] MEDS: CLARITIN 10 MG PO (08:25)
[2024-08-27 09:45] LABS: LDH 257 U/L (120-246)
--- NOTE | 2024-08-27 10:17 | PTCARENOTE ---
Pericardial drain site dsg saturated serous pink, dsg reinforced this am with Dr Power Montes.
[2024-08-27] MEDS: COLCHICINE 0.6 MG PO ×2 (10:31→20:29)
[2024-08-27] MEDS: PEPCID 20 MG PO (10:31)
[2024-08-27 11:07] VITALS: BP 113/74
[2024-08-27] MEDS: LASIX 20 MG IV (12:43)
[2024-08-27 15:08] VITALS: BP 107/79
[2024-08-27] MEDS: MOTRIN 600 MG PO ×2 (15:59→22:36)
--- NOTE | 2024-08-27 17:26 | PTCARENOTE ---
Pericardial drain continues to leak around site at sheath hub, Dr Delta Montes changed dressing and irrigated tube earlier today. Pt had Echo today. Dr Montes came back this afternoon, removed drain dressing and replaced football drain with a
new one. New DSD applied to drain site. Drainage on old dsg serous to pink. Currently there is no drainage in the football.
[2024-08-27] MEDS: LIPITOR 40 MG PO (18:29)
[2024-08-27 18:45] VITALS: BP 118/74
[2024-08-27 22:26] VITALS: BP 104/80
[2024-08-27] MEDS: XANAX 0.125 MG PO (22:36)
--- NOTE | 2024-08-28 00:11 | PTCARENOTE ---
Assumed care of the pt @ 1900. Pt AAOx3 SR on the monitor VSS afebrile. Incisional site dressing c/d/i. Pericardial drain no output this shift. Call fields within reach.
[2024-08-28 04:05] VITALS: BP 112/90
[2024-08-28 04:12] VITALS: BMI 28.9
[2024-08-28 04:46] LABS: % Basophils 0.8 % (0-2); % Eosinophils 3.5 % (0-6); % Immature Granulocytes 0.3 % (0-0.5); % Lymphocytes 21.2 % (20.5-51.1); % Monocytes 7.6 % (1.7-9.3); % Neutrophils 66.6 % (42.2-75.2); Absolute Basophils 0.1 10^3/uL (0-0.2); Absolute Eosinophils 0.3 10^3/uL (0-0.7); Absolute Lymphocytes 1.5 10^3/uL (1.2-3.4); Absolute Monocytes 0.5 10^3/uL (0.1-0.6); Absolute Neutrophils 4.7 10^3/uL (1.4-6.5); Hematocrit 37.7 % (39.0-52.0); Hemoglobin 12.6 g/dL (13.0-18.0); Mean Corp Hgb Conc. 33.4 g/dL (33.0-37.0); Mean Corpuscular Hgb 32.3 pg (27.0-31.0); Mean Corpuscular Volume 96.7 fL (80.0-94.0); Mean Platelet Volume 9.9 fL (7.4-10.4); Nucleated Red Blood Cells % 0 % (-); Platelet Count 258 10^3/uL (130-400); Red Cell Dist. Width 13.1 % (11.5-14.5); White Blood Cell Count 7.1 10^3/uL (4.8-10.8)
[2024-08-28 05:01] LABS: ALT (SGPT) 55 U/L (0-50); AST (SGOT) 40 U/L (17-59); Albumin 3.7 g/dl (3.5-5.0); Alkaline Phosphatase 89 U/L (38-126); Blood Urea Nitrogen 28 mg/dl (9-20); Carbon Dioxide 25 mmol/L (22-30); Chloride 101 mmol/L (98-107); Estimated Creatinine Clearance 64 ml/min; Glucose 97 mg/dl (70-99); Potassium 4.2 mmol/L (3.5-5.1); Sodium 137 mmol/L (135-145); Total Protein 6.3 g/dl (6.3-8.2); eGFR > 60.00
--- NOTE | 2024-08-28 07:00 | W.PN.HOSP.TC ---
Addendum entered and electronically signed by Madelyn Briceno MD 08/28/24 20:16:
I saw and evaluated the patient independently. I reviewed the resident�s note and agree with findings and plan as documented by Dr. Mijares.
GENERAL: well developed, well nourished, male in no apparent distress
HEENT: NC/AT
HEART: regular rate and rhythm, +S1, +S2--pericardial drain in place
LUNGS : clear to auscultation bilaterally
ABDOM: soft, nontender, nondistended, + bowel sounds
EXT: no cyanosis, clubbing, or edema
NEUROLOGIC: grossly intact
Pericardial effusion--S/p pericardiocentesis with drain (day 2)--suspect due to post infection from COVID in June--Echo was done with evidence of hemodynamic compromise--Removal of 850 mL of bloody pericardial fluid, pericardial drain
placed--Elevated ESR at 51, CRP at 205--cultures pending--Echo done Thursday showed improvement--Follow-up echo on Thursday--Hemoglobin stable at 12.8--ibuprofen x 7 days, colchicine x 3 months
Abdominal pain--CT abdomen pelvis showed evidence of gallbladder thickening, contracted gallbladder containing tiny stones and/or sludge--Surgery consulted�suspected gallbladder thickening might be from hepatic congestion, and might be reactive in
nature--Recommend following up as outpatient as the patient's symptoms have subsided after pericardiocentesis
GERD--Continue pantoprazole
Hyperlipidemia--Continue atorvastatin
Depression/anxiety--Continue Zoloft--Xanax at bedtime
DVT prophylaxis�SCDs
Code status--Full code
Original Note:
Today's Communication/Plan
-
Continue ibuprofen and colchicine
Monitor drain output
Assessment / Plan
Assessment / Plan
69-year-old male with past medical history of hyperlipidemia, right bundle branch block, GERD presented to the ED with abdominal pain, nausea, shortness of breath and cough.
Impression/plan
Pericardial effusion
S/p pericardiocentes, day 2
Likely postinfectious (patient had COVID in short of breath and had chronic cough since then)
Evaluation of his abdominal pain in the ED with CT abdomen pelvis revealed evidence of large pericardial effusion.
Echo was done with evidence of hemodynamic compromise
Patient was taken to [facility] for pericardiocentesis
Removal of 850 mL of bloody pericardial fluid, pericardial drain placed.
Elevated ESR at 51, CRP at 205
Fluid analysis�exudative
Fluid cultures pending
Continue to monitor drain output
Follow-up echo on Thursday
Hemoglobin stable at 12.8
Continue ibuprofen, colchicine
Pericardial drain repositioned yesterday.
Repeat bedside echo�improvement in pericardial effusion, still small amount of fluid noticed in the RV lateral wall area/LV apical regions.
Plan to remove drain tomorrow and repeat echo.
Mild bilateral pleural effusion
White count normal, afebrile
Patient is asymptomatic
Likely postinfectious
Will monitor
Abdominal pain
CT abdomen pelvis showed evidence of gallbladder thickening,contracted gallbladder containing tiny stones and/or sludge.
Surgery consulted�suspected gallbladder thickening might be from hepatic congestion, and might be reactive in nature.
Recommend following up as outpatient as the patient's symptoms have subsided after pericardiocentesis
GERD
Continue pantoprazole
Hyperlipidemia
Continue atorvastatin
Depression/anxiety
Continue Zoloft
Xanax at bedtime
DVT prophylaxis�SCDs
Full code
Anticipated Discharge: 24 - 48 hours
Subjective/Interval History
-
Date of Service: August 28, 2024
Patient reports his SOB has improved. No chest/abdominal pain.
Objective Data
-
Labs:
Laboratory Results
08/28/24
04:18
WBC 7.1
Hgb 12.6 L
Hct 37.7 L
Plt Count 258
Sodium 137
Potassium 4.2
Chloride 101
Carbon Dioxide 25
BUN 28 H
Creatinine 1.1
Glucose 97
Calcium 9.0
Total Bilirubin 1.0
AST 40
ALT 55 H
Alkaline Phosphatase 89
Vital Signs:
Vital Signs
Temp Pulse Resp BP Pulse Ox
97.8 F 71 16 112/90 96
08/28/24 04:10 08/28/24 04:10 08/28/24 04:10 08/28/24 04:05 08/28/24 04:10
I&O
08/27/24 08/28/24 08/29/24
06:59 06:59 06:59
Intake Total 240 / 240 400 / 400
Output Total 20 / 20
Balance 240 / 240 380 / 380
Review of Systems
-
All other systems: Reviewed and negative (As per history)
Physical Exam
-
General: Well Developed, Well Nourished and No Apparent Distress
HEENT: Normocephalic and Atraumatic
Respiratory: Clear to Auscultation
Cardiac: Regular Rhythm, S1/S2 and Other (Pericardial drain in place)
GI: Soft, Nontender, Nondistended and Normal Bowel Sounds
Skin: Warm and Dry
Neuro: Awake, Alert, Oriented and AO x 3
Psych: Calm
[2024-08-28 07:17] VITALS: BP 110/76
[2024-08-28] MEDS: COLCHICINE 0.6 MG PO ×2 (08:27→21:38)
[2024-08-28] MEDS: CLARITIN 10 MG PO (08:27)
[2024-08-28] MEDS: PEPCID 20 MG PO (08:28)
[2024-08-28] MEDS: MOTRIN 600 MG PO ×3 (08:28→22:40)
[2024-08-28] MEDS: PROTONIX 40 MG PO (08:29)
[2024-08-28] MEDS: VITAMIN B-12 1000 MCG PO (08:29)
[2024-08-28] MEDS: VITAMIN C 500 MG PO (08:29)
[2024-08-28] MEDS: VITAMIN D3 (cholecalciferol) 25 MCG PO (08:30)
[2024-08-28] MEDS: ZOLOFT 37.5 MG PO (08:30)
--- NOTE | 2024-08-28 10:32 | PTCARENOTE ---
Pt ambulating in room ,eulalio well, offers no complaints.
[2024-08-28 11:47] VITALS: BP 114/88
--- NOTE | 2024-08-28 14:22 | W.PN.CARDCBS ---
Today's Communication / Plan
-
Plan to pull pericardial drain tomorrow. Recheck echo on Thursday. Likely then recheck in 1 week.
Fluid appeared to be more inflammatory/exudative. I do not see cytology pending. Will ask on Thursday if there is enough fluid to run cytology.
With the addition of colchicine and ibuprofen symptoms of chest and abdominal pain have resolved. Likely inflammatory in nature. Continue colchicine for 3 months. Watch for loose stools. Continue ibuprofen for 7 days with food.
Impression / Plan
-
PCP: Dr. Matias
Glassware Finisher: Dr. Duncan
Impression:
Presented with RUQ abdominal pain, nausea, and SOB
Large circumferential pericardial effusion
s/p pericardiocentesis 08/26/2024 w/ 850 cc bloody fluid removed
Pleural effusions
HLD
Elevated coronary calcium score
Family h/o CAD
RBBB
GERD
BPH
Anxiety
Echo 01/12/2024: EF 55%, mild MR, upper normal aortic root for body surface area
Echo 08/26/2024: EF 60-65%, trace MR, aortic sclerosis without stenosis, dilated RV with diastolic collapse of the RV free wall. PASP 50-55 mmHg, large pericardial effusion with evidence of hemodynamic compromise and marked fibrinous thickening of
the visceral pericardium.
Plan:
He tells me he is feeling better today than yesterday. Breathing is better. Output and drainage from pericardial drain externally is less.
-Presented with abdominal pain, nausea, and SOB. Found to have large pericardial effusion on CT of abdomen/pelvis resulting in cardiology consult. Urgent echo completed in ER and confirmed large pericardial effusion w/ evidence of hemodynamic
compromise.
-Interestingly, prior coronary CTA did note small volume mediastinal fluid 01/2024.
-s/p pericardiocentesis w/ 850 cc bloody pericardial fluid removed 08/26/2024.
-Drain w/ 20 cc output overnight. External oozing better controlled. Plan to pull pericardial drain tomorrow. Recheck echo on Thursday. Likely then recheck in 1 week.
-Fluid appeared to be more inflammatory/exudative. I do not see cytology pending. Will ask on Thursday if there is enough fluid to run cytology.
-ESR elevated at 51, CRP 205.3. Fluid studies pending. With the addition of colchicine and ibuprofen symptoms of chest and abdominal pain have resolved. Likely inflammatory in nature. Continue colchicine for 3 months. Watch for loose stools.
Continue ibuprofen for 7 days with food.
-Chest x-ray with bilateral effusions possibly consistent with pleuritis. He is 3 pounds down with 1 dose of IV Lasix. Will give 1 dose of oral Lasix today. Check proBNP level in the morning.
Spoke to the patient and family at the bedside.
HPI: Sterling is a 69 year old male with PMH of HLD, elevated coronary calcium score, RBBB, GERD, BPH, and anxiety who presented to [facility] for evaluation of nausea and abdominal pain. He has had no vomiting or diarrhea. Does note some pain that radiates
into chest, worse with lying flat. Denies any fevers or chills. Denies any dizziness or lightheadedness. In ER, CT of abdomen and pelvis showed contracted gallbladder containing stones and/or sludge as well as large pericardial effusion. Given large
pericardial effusion, cardiology consulted and order was placed for urgent echo. Echo revealed large circumferential pericardial effusion with some evidence of RV compression. BP has been stable, but HR is mildly elevated. He feels well currently
but with lying back begins to cough. Notes he has had a cough and some increased SOB since having Covid June 2024.
Progress Note - Glassware Finisher
Subjective
Date of Service: August 28, 2024
He is feeling better today. Chest discomfort abdominal comfort have resolved.
Objective
Labs:
08/28/24 04:18
08/28/24 04:18
Labs
Hgb 12.6 g/dL (13.0-18.0) L 08/28/24 04:18
Hct 37.7 % (39.0-52.0) L 08/28/24 04:18
Plt Count 258 10^3/uL (130-400) 08/28/24 04:18
Sodium 137 mmol/L (135-145) 08/28/24 04:18
Potassium 4.2 mmol/L (3.5-5.1) 08/28/24 04:18
BUN 28 mg/dl (9-20) H 08/28/24 04:18
Creatinine 1.1 mg/dL (0.7-1.3) 08/28/24 04:18
Glucose 97 mg/dl (70-99) 08/28/24 04:18
Troponins
08/26/24
07:49
Troponin I < 0.012
Vital Signs and I&O:
Vital Signs
Temp Pulse Resp BP Pulse Ox
97.8 F 80 20 110/76 92
08/28/24 11:48 08/28/24 10:45 08/28/24 11:48 08/28/24 07:17 08/28/24 11:48
Vital Signs
Temp Pulse Resp BP Pulse Ox
97.8 F 80 20 110/76 92
08/28/24 11:48 08/28/24 10:45 08/28/24 11:48 08/28/24 07:17 08/28/24 11:48
Intake & Output
08/26/24 08/27/24 08/28/24 08/29/24
06:59 06:59 06:59 06:59
Intake Total 240 / 240 400 / 400
Output Total 20 / 20
Balance 240 / 240 380 / 380
Physical Exam
Physical Exam
General: Well developed, well nourished in NAD.
Heart: Non displaced PMI, RRR, no murmurs, No S3, S4, no rubs. Pericardial drain intact
Lungs: Few crackles bibasilar
Extremities: No clubbing, cyanosis or edema bilaterally.
Neuro: Grossly nonfocal, awake, alert and oriented x3.
[2024-08-28 15:16] VITALS: BP 111/74
[2024-08-28] MEDS: LASIX 20 MG PO (16:47)
--- NOTE | 2024-08-28 17:27 | PTCARENOTE ---
Pt pericardial drain in place, very scant amt drainage in football drain - approx 1 ml. Dsg to drain site mostly saturated with pale pink drainage. Dsg changed this afternoon. There is no leaking noted around drain site today. Cleansed around site
with CHG swab, new DSD applied with tegaderm and paper tape.
[2024-08-28] MEDS: LIPITOR 40 MG PO (18:13)
[2024-08-28] MEDS: XANAX 0.125 MG PO (22:40)
[2024-08-28 22:45] VITALS: BP 115/80
--- NOTE | 2024-08-29 01:00 | PTCARENOTE ---
Assumed care of the pt @ 1900. Pt AAOx3 denies pain at this time SR on the monitor VSS Pericardial drain intact with serosang drainage at site. Dressing was changed with gauze and tegaderm. Call fields within reach.
[2024-08-29 02:56] VITALS: BP 127/90
[2024-08-29 02:58] VITALS: BMI 28.9
[2024-08-29 03:36] LABS: % Eosinophils 3.8 % (0-6); % Immature Granulocytes 0.4 % (0-0.5); % Lymphocytes 21.9 % (20.5-51.1); % Monocytes 7.2 % (1.7-9.3); % Neutrophils 65.7 % (42.2-75.2); Absolute Basophils 0.1 10^3/uL (0-0.2); Absolute Eosinophils 0.3 10^3/uL (0-0.7); Absolute Lymphocytes 1.6 10^3/uL (1.2-3.4); Absolute Monocytes 0.5 10^3/uL (0.1-0.6); Absolute Neutrophils 4.8 10^3/uL (1.4-6.5); Hematocrit 34.2 % (39.0-52.0); Hemoglobin 11.8 g/dL (13.0-18.0); Mean Corp Hgb Conc. 34.5 g/dL (33.0-37.0); Mean Corpuscular Hgb 32.8 pg (27.0-31.0); Mean Platelet Volume 10.2 fL (7.4-10.4); Nucleated Red Blood Cells % 0 % (-); Platelet Count 258 10^3/uL (130-400); Red Cell Dist. Width 12.7 % (11.5-14.5); White Blood Cell Count 7.4 10^3/uL (4.8-10.8)
[2024-08-29 03:58] LABS: ALT (SGPT) 56 U/L (0-50); AST (SGOT) 44 U/L (17-59); Albumin 3.7 g/dl (3.5-5.0); Alkaline Phosphatase 87 U/L (38-126); Blood Urea Nitrogen 22 mg/dl (9-20); Calcium 8.4 mg/dl (8.4-10.2); Carbon Dioxide 21 mmol/L (22-30); Chloride 103 mmol/L (98-107); Estimated Creatinine Clearance 78 ml/min; Glucose 99 mg/dl (70-99); Potassium 4.1 mmol/L (3.5-5.1); Sodium 137 mmol/L (135-145); Total Bilirubin 0.8 mg/dl (0.2-1.3); Total Protein 6.5 g/dl (6.3-8.2); eGFR > 60.00
[2024-08-29 04:05] LABS: NT-proBNP 268 pg/ml
[2024-08-29 07:45] VITALS: BP 106/81
--- NOTE | 2024-08-29 08:12 | W.PN.CARDCBS ---
Addendum entered and electronically signed by Sterling Torres MD 08/29/24 09:01:
69-year-old man with hyperlipidemia, right bundle branch block, GERD, BPH and an elevated coronary artery calcium score admitted with tamponade following COVID in June. Had pericardiocentesis of 850 mL of bloody fluid, presumably inflammatory
Overall he feels well, all his symptoms have resolved. Minimal output from drain. Still with some diarrhea, colchicine dose reduced yesterday to 0.3 twice daily.
PMH:As above
Current medications: Alprazolam, atorvastatin 40 mg a day, pantoprazole 40 mg a day, B12, loratadine, sertraline 37.5 mg a day, famotidine 20 mg a day, ibuprofen, colchicine 0.3 twice daily
106/81, pulse 74 respiratory rate 18, afebrile, weight is 91.4 kg, admission weight was 99 kg, intake and output incomplete, head neck exam unremarkable, regular rate and rhythm, lungs are clear, no murmurs, abdomen benign, extremities without
clubbing cyanosis or edema, drain intact
Echo August 27, dramatic improvement in pericardial fluid
Pericardial drain pulled without difficulty. Patient tolerated well.
Impression:
Pericardial tamponade, possibly related to recent COVID infection
Status post pericardiocentesis
Hyperlipidemia coronary artery calcium
GERD
Right bundle branch block
Plan:
Overall doing well.
Drain successfully pulled.
Observe today
Continue ibuprofen, colchicine at reduced dose
Repeat echo in a.m. and if stable okay for discharge with follow-up outpatient echo
Original Note:
Today's Communication / Plan
-
Pericardial drain with minimal output overnight
Pull drain today
check echo in AM 2/4 and then again likely in 1 week
Continue colchicine, ibuprofen. Reduce colchicine due to diarrhea
Impression / Plan
-
PCP: Dr. Matias
Clarifier Operator: Dr. Duncan
Impression:
Presented with RUQ abdominal pain, nausea, and SOB
Large circumferential pericardial effusion
s/p pericardiocentesis 08/26/2024 w/ 850 cc bloody fluid removed
Pleural effusions
HLD
Elevated coronary calcium score
Family h/o CAD
RBBB
GERD
BPH
Anxiety
Echo 01/12/2024: EF 55%, mild MR, upper normal aortic root for body surface area
Echo 08/26/2024: EF 60-65%, trace MR, aortic sclerosis without stenosis, dilated RV with diastolic collapse of the RV free wall. PASP 50-55 mmHg, large pericardial effusion with evidence of hemodynamic compromise and marked fibrinous thickening of
the visceral pericardium.
Echo 08/27/2024: EF 55-60%, small to moderate pericardial effusion without evidence of hemodynamic compromise.
Plan:
-Presented with abdominal pain, nausea, and SOB. Found to have large pericardial effusion on CT of abdomen/pelvis. Urgent echo completed in ER and confirmed large pericardial effusion w/ evidence of hemodynamic compromise. Interestingly, prior
coronary CTA did note small volume mediastinal fluid 01/2024.
-s/p pericardiocentesis w/ 850 cc bloody pericardial fluid removed 08/26/2024.
-Drain remains in place with only minimal output overnight. Will plan to pull the drain this AM. Check echo tomorrow, 08/30/2024, then likely recheck in 1 week as OP.
-ESR elevated at 51, CRP 205.3. Fluid studies pending, appears to be more inflammatory/exudative.
-Continues on colchicine and ibuprofen.
-Has noted diarrhea for last 3 bowel movements since starting colchicine. Will reduce to 0.3mg BID. Continue colchicine for 3 months.
-Continue ibuprofen for 7 days.
-CXR on 08/27 noted b/l pleural effusions consistent with pleuritis. Down to 201 lbs 2/3. s/p IV lasix 20mg x 2. ProBNP 268. Will hold off on further diuretics at this time.
-He reports he is feeling well with no SOB or chest discomfort.
HPI: Sterling is a 69 year old male with PMH of HLD, elevated coronary calcium score, RBBB, GERD, BPH, and anxiety who presented to [facility] for evaluation of nausea and abdominal pain. He has had no vomiting or diarrhea. Does note some pain that radiates
into chest, worse with lying flat. Denies any fevers or chills. Denies any dizziness or lightheadedness. In ER, CT of abdomen and pelvis showed contracted gallbladder containing stones and/or sludge as well as large pericardial effusion. Given large
pericardial effusion, cardiology consulted and order was placed for urgent echo. Echo revealed large circumferential pericardial effusion with some evidence of RV compression. BP has been stable, but HR is mildly elevated. He feels well currently
but with lying back begins to cough. Notes he has had a cough and some increased SOB since having Covid June 2024.
Progress Note - Clarifier Operator
Subjective
Date of Service: August 29, 2024
Continues to feel well from a cardiac standpoint but has noted some diarrhea.
Objective
Labs:
08/29/24 03:03
08/29/24 03:03
Labs
Hgb 11.8 g/dL (13.0-18.0) L 08/29/24 03:03
Hct 34.2 % (39.0-52.0) L 08/29/24 03:03
Plt Count 258 10^3/uL (130-400) 08/29/24 03:03
Sodium 137 mmol/L (135-145) 08/29/24 03:03
Potassium 4.1 mmol/L (3.5-5.1) 08/29/24 03:03
BUN 22 mg/dl (9-20) H 08/29/24 03:03
Creatinine 0.9 mg/dL (0.7-1.3) 08/29/24 03:03
Glucose 99 mg/dl (70-99) 08/29/24 03:03
Troponins
08/26/24
07:49
Troponin I < 0.012
Vital Signs and I&O:
Vital Signs
Temp Pulse Resp BP Pulse Ox
97.4 F 75 18 127/90 96
08/29/24 07:41 08/29/24 03:00 08/29/24 07:41 08/29/24 02:56 08/29/24 07:41
Vital Signs
Temp Pulse Resp BP Pulse Ox
97.4 F 75 18 127/90 96
08/29/24 07:41 08/29/24 03:00 08/29/24 07:41 08/29/24 02:56 08/29/24 07:41
Intake & Output
08/27/24 08/28/24 08/29/24 08/30/24
06:59 06:59 06:59 06:59
Intake Total 240 / 240 400 / 400
Output Total 20 / 20 1 / 1
Balance 240 / 240 380 / 380 -1 / -1
Physical Exam
Physical Exam
GEN: No distress, awake, alert, oriented x3
HEENT: supple, anicteric, mmm
LUNGS: CTA b/l, no wheezes/rales
CV: Reg, S1/S2, no murmur, pericardial drain in place
EXT: No clubbing, cyanosis, or edema
NEURO: Gross non-focal
SKIN: Warm, dry, no rash
[2024-08-29] MEDS: MOTRIN 600 MG PO ×3 (08:20→22:39)
[2024-08-29] MEDS: CLARITIN 10 MG PO (08:20)
[2024-08-29] MEDS: VITAMIN B-12 1000 MCG PO (08:20)
[2024-08-29] MEDS: PROTONIX 40 MG PO (08:20)
[2024-08-29] MEDS: VITAMIN C 500 MG PO (08:20)
[2024-08-29] MEDS: PEPCID 20 MG PO (08:20)
[2024-08-29] MEDS: ZOLOFT 37.5 MG PO (08:20)
[2024-08-29] MEDS: VITAMIN D3 (cholecalciferol) 25 MCG PO (08:20)
[2024-08-29] MEDS: COLCHICINE 0.3 MG PO ×2 (09:18→19:35)
[2024-08-29] MEDS: COLCHICINE PO (10:12)
[2024-08-29 12:41] VITALS: BP 118/90
--- NOTE | 2024-08-29 12:56 | CM ---
Chart reviewed. Patient is independent of ADLS, lives alone in a [address], total of [address], 0 DME. Patient with a supportive family. Plan is for the patient to return home and have his daughter stay with him for a couple of days. CM to follow
--- NOTE | 2024-08-29 14:53 | PTCARENOTE ---
Pt received this am with pericardial drain intact. Dr. Torres in later and removed drain. Dressing remains dry and intact. Pt denies any pain or sob. OOB ad pooja. No c/o offered.
[2024-08-29 16:12] VITALS: BP 112/80
--- NOTE | 2024-08-29 17:28 | W.PN.UPDATE ---
Update Note
Progress Note Update
Seen and examined by me independently in collaboration with the medical billing associate.
Lab data and imaging data reviewed.
Addendum as below :
Resolved his presenting symptoms after pericardiocentesis suggesting the cause of his symptomatology.
Culture data so far from pericardial fluid negative but elevated LDH noted.
On colchicine which we will continue.
Plan is for echocardiogram tomorrow and if no reaccumulation plan is for discharge.
[2024-08-29] MEDS: LIPITOR 40 MG PO (17:35)
[2024-08-29 18:39] VITALS: BP 107/83
--- NOTE | 2024-08-29 19:31 | W.PN.HOSP.TC ---
Today's Communication/Plan
-
Pericardial drain out
Continue colchicine at lower dose
Repeat echo tomorrow
Assessment / Plan
Assessment / Plan
69-year-old male with past medical history of hyperlipidemia, right bundle branch block, GERD presented to the ED with abdominal pain, nausea, shortness of breath and cough.
Impression/plan
Pericardial effusion
S/p pericardiocentes
Likely postinfectious (patient had COVID in short of breath and had chronic cough since then)
Evaluation of his abdominal pain in the ED with CT abdomen pelvis revealed evidence of large pericardial effusion.
Echo was done with evidence of hemodynamic compromise
Patient was taken to [facility] for pericardiocentesis
Removal of 850 mL of bloody pericardial fluid, pericardial drain placed.
Elevated ESR at 51, CRP at 205
Fluid analysis�exudative
Fluid cultures pending
Continue to monitor drain output
Follow-up echo on Thursday
Hemoglobin stable at 12.8
Continue ibuprofen, colchicine - cardiology decreased colchicine dose sylvester to diarrhea
Pericardial drain removed today.
Plan for echo tomorrow � if improved, plan for discharge
Mild bilateral pleural effusion
White count normal, afebrile
Patient is asymptomatic
Likely postinfectious
Will monitor
Abdominal pain
CT abdomen pelvis showed evidence of gallbladder thickening,contracted gallbladder containing tiny stones and/or sludge.
Surgery consulted�suspected gallbladder thickening might be from hepatic congestion, and might be reactive in nature.
Recommend following up as outpatient as the patient's symptoms have subsided after pericardiocentesis
GERD
Continue pantoprazole
Hyperlipidemia
Continue atorvastatin
Depression/anxiety
Continue Zoloft
Xanax at bedtime
DVT prophylaxis�SCDs
Full code
Anticipated Discharge: Within 24 hours
Subjective/Interval History
-
Date of Service: August 29, 2024
Objective Data
-
Vital Signs:
Vital Signs
Temp Pulse Resp BP Pulse Ox
97.5 F 75 20 112/80 95
08/29/24 19:12 08/29/24 16:15 08/29/24 19:12 08/29/24 16:12 08/29/24 19:12
I&O
08/28/24 08/29/24 08/30/24
06:59 06:59 06:59
Intake Total 400 / 400
Output Total
Balance 380 / 380 - / -1
[2024-08-29 22:39] VITALS: BP 112/82
[2024-08-29] MEDS: XANAX 0.125 MG PO (22:39)
--- NOTE | 2024-08-30 01:02 | PTCARENOTE ---
Received patient at change of shift. SR on the monitor, HR in the 70s. Chest dressing CDI. Pt verbalizes understanding of plan of care. No complaints from pt at this time, call fields within reach.
[2024-08-30 02:55] VITALS: BP 112/90
[2024-08-30 03:24] VITALS: BMI 28.7
[2024-08-30 04:18] LABS: % Basophils 0.9 % (0-2); % Eosinophils 4.3 % (0-6); % Immature Granulocytes 0.5 % (0-0.5); % Lymphocytes 26.5 % (20.5-51.1); % Monocytes 8.8 % (1.7-9.3); Absolute Basophils 0.1 10^3/uL (0-0.2); Absolute Eosinophils 0.3 10^3/uL (0-0.7); Absolute Lymphocytes 1.5 10^3/uL (1.2-3.4); Absolute Monocytes 0.5 10^3/uL (0.1-0.6); Absolute Neutrophils 3.4 10^3/uL (1.4-6.5); Hemoglobin 11.8 g/dL (13.0-18.0); Mean Corp Hgb Conc. 33.7 g/dL (33.0-37.0); Mean Corpuscular Hgb 32.3 pg (27.0-31.0); Mean Corpuscular Volume 95.9 fL (80.0-94.0); Mean Platelet Volume 10.1 fL (7.4-10.4); Nucleated Red Blood Cells % 0 % (-); Platelet Count 282 10^3/uL (130-400); Red Blood Cell Count 3.65 10^6/uL (4.70-6.10); Red Cell Dist. Width 12.7 % (11.5-14.5); White Blood Cell Count 5.8 10^3/uL (4.8-10.8)
[2024-08-30 04:21] LABS: Blood Urea Nitrogen 18 mg/dl (9-20); Calcium 8.6 mg/dl (8.4-10.2); Carbon Dioxide 22 mmol/L (22-30); Chloride 105 mmol/L (98-107); Estimated Creatinine Clearance 87 ml/min; Glucose 104 mg/dl (70-99); Potassium 4.2 mmol/L (3.5-5.1); Sodium 139 mmol/L (135-145); eGFR > 60.00
[2024-08-30 06:49] VITALS: BP 122/88
[2024-08-30] MEDS: ZOLOFT 37.5 MG PO (07:52)
[2024-08-30] MEDS: CLARITIN 10 MG PO (07:53)
[2024-08-30] MEDS: VITAMIN B-12 1000 MCG PO (07:53)
[2024-08-30] MEDS: MOTRIN 600 MG PO (07:54)
[2024-08-30] MEDS: PROTONIX 40 MG PO (07:55)
[2024-08-30] MEDS: VITAMIN C 500 MG PO (07:55)
[2024-08-30] MEDS: VITAMIN D3 (cholecalciferol) 25 MCG PO (07:55)
[2024-08-30] MEDS: PEPCID 20 MG PO (07:56)
[2024-08-30] MEDS: COLCHICINE 0.3 MG PO (07:57)
--- NOTE | 2024-08-30 08:45 | W.PN.CARDCBS ---
Addendum entered and electronically signed by Jim Duncan MD 08/30/24 09:47:
I saw and examined the patient.
The Rehabilitation Technician's note was reviewed and I agree with the note.
Comment:
GEN: No distress, awake, Ox3
HEENT: supple, anicteric, mmm
LUNGS: CTA, no wheezes/rales
CV: Reg, S1/S2, 1/6 syst LSB, no rub
ABD: soft, BS+, NT/ND
EXT: No edema
NEURO: Gross non-focal
SKIN: No rash
Plan:
Overall feels well. Repeat echo today with no reaccumulation of effusion. Okay for discharge.
Will continue Motrin for 4 days and colchicine for 3 months.
Would recommend repeat limited transthoracic echo in 2 weeks with follow-up with myself after.
Original Note:
Today's Communication / Plan
-
repeat echo today. if ok, can DC later today with repeat echo in 1-2 weeks
continue motrin for additional 4 days
continue colchicine 0.3mg BID for 3 months total
will arrange OP cardiac follow up
Impression / Plan
-
PCP: Dr. Matias
Durability Engineer: Dr. Duncan
Impression:
Presented with RUQ abdominal pain, nausea, and SOB
Large circumferential pericardial effusion
s/p pericardiocentesis 08/26/2024 w/ 850 cc bloody fluid removed
Pleural effusions
HLD
Elevated coronary calcium score
Family h/o CAD
RBBB
GERD
BPH
Anxiety
Echo 01/12/2024: EF 55%, mild MR, upper normal aortic root for body surface area
Echo 08/26/2024: EF 60-65%, trace MR, aortic sclerosis without stenosis, dilated RV with diastolic collapse of the RV free wall. PASP 50-55 mmHg, large pericardial effusion with evidence of hemodynamic compromise and marked fibrinous thickening of
the visceral pericardium.
Echo 08/27/2024: EF 55-60%, small to moderate pericardial effusion without evidence of hemodynamic compromise.
Plan:
-Presented with abdominal pain, nausea, and SOB. Found to have large pericardial effusion on CT of abdomen/pelvis. Urgent echo completed in ER and confirmed large pericardial effusion w/ evidence of hemodynamic compromise. Interestingly, prior
coronary CTA did note small volume mediastinal fluid 01/2024.
-s/p pericardiocentesis w/ 850 cc bloody pericardial fluid removed 08/26/2024. drain pulled 08/29/24.
-ESR elevated at 51, CRP 205.3. Fluid studies pending, appears to be more inflammatory/exudative.
-for repeat echo today. if without significant reaccumulation, will plan for repeat echo in 1-2 weeks as OP
-continue colchicine 0.3mg BID (reduced due to diarrhea) for 3 months. continue motrin for additional 4 days.
-CXR on 08/27 noted b/l pleural effusions consistent with pleuritis. Down to 199 lbs 08/30. s/p IV lasix 20mg x 2. ProBNP 268. Will hold off on further diuretics at this time.
-no complaints today
-for possible DC later today
-d/w patient and family at bedside
HPI: Sterling is a 69 year old male with PMH of HLD, elevated coronary calcium score, RBBB, GERD, BPH, and anxiety who presented to [facility] for evaluation of nausea and abdominal pain. He has had no vomiting or diarrhea. Does note some pain that radiates
into chest, worse with lying flat. Denies any fevers or chills. Denies any dizziness or lightheadedness. In ER, CT of abdomen and pelvis showed contracted gallbladder containing stones and/or sludge as well as large pericardial effusion. Given large
pericardial effusion, cardiology consulted and order was placed for urgent echo. Echo revealed large circumferential pericardial effusion with some evidence of RV compression. BP has been stable, but HR is mildly elevated. He feels well currently
but with lying back begins to cough. Notes he has had a cough and some increased SOB since having Covid June 2024.
Progress Note - Durability Engineer
Subjective
Date of Service: August 30, 2024
reports feeling well. no issues
Objective
Labs:
08/30/24 03:01
08/30/24 03:01
Labs
Hgb 11.8 g/dL (13.0-18.0) L 08/30/24 03:01
Hct 35.0 % (39.0-52.0) L 08/30/24 03:01
Plt Count 282 10^3/uL (130-400) 08/30/24 03:01
Sodium 139 mmol/L (135-145) 08/30/24 03:01
Potassium 4.2 mmol/L (3.5-5.1) 08/30/24 03:01
BUN 18 mg/dl (9-20) 08/30/24 03:01
Creatinine 0.8 mg/dL (0.7-1.3) 08/30/24 03:01
Glucose 104 mg/dl (70-99) H 08/30/24 03:01
Vital Signs and I&O:
Vital Signs
Temp Pulse Resp BP Pulse Ox
97.7 F 77 18 112/90 97
08/30/24 07:00 08/30/24 03:15 08/30/24 07:00 08/30/24 02:55 08/30/24 07:00
Vital Signs
Temp Pulse Resp BP Pulse Ox
97.7 F 77 18 112/90 97
08/30/24 07:00 08/30/24 03:15 08/30/24 07:00 08/30/24 02:55 08/30/24 07:00
Intake & Output
08/28/24 08/29/24 08/30/24 08/31/24
07:59 07:59 07:59 07:59
Intake Total 400 / 400 480 / 480
Output Total 0 / 0
Balance 400 / 400 -1 / -1 480 / 480
Physical Exam
Physical Exam
GEN: No distress, awake, alert, oriented x3
HEENT: supple, anicteric, mmm, eomi
LUNGS: CTA B/L, no wheezes/rales
CV: Reg, S1/S2, no murmur
ABD: soft, BS+, NT/ND
EXT: No cyanosis, clubbing, edema
NEURO: Gross non-focal
SKIN: Warm, pink, dry. No rash
--- NOTE | 2024-08-30 10:31 | W.PN.HOSP.TC ---
Addendum entered and electronically signed by Beck Castellanos MD 08/30/24 14:49:
Seen and examined by me independently in collaboration with the emergency medical service manager.
Lab data and imaging data reviewed.
Addendum as below :
Remains asymptomatic. Repeat echo shows no reaccumulation. Stable for discharge home today. Appreciate cardiology recommendations for discharge.
Patient advised to follow-up with general surgery regarding presence of gallstones and gallbladder wall thickening as they could be chronic cholecystitis and the could be an indication for cholecystectomy. He seems to be symptomatic from the
gallbladder disease..
Original Note:
Documented by User: Ellen Carnes MD, Resident 08/30/24 10:36
Today's Communication/Plan
-
Discharge today
Continue Motrin x4 days and colchicine for 3 months
Outpt follow-up with cardiology for repeat echo in 1-2 weeks
Assessment / Plan
Assessment / Plan
69-year-old male with past medical history of hyperlipidemia, right bundle branch block, GERD presented to the ED with abdominal pain, nausea, shortness of breath and cough.
Impression/plan
Pericardial effusion
S/p pericardiocentes
Likely postinfectious (patient had COVID in s short of breath and had chronic cough since then)
Evaluation of his abdominal pain in the ED with CT abdomen pelvis revealed evidence of large pericardial effusion.
Echo was done with evidence of hemodynamic compromise
Patient was taken to [facility] for pericardiocentesis
Removal of 850 mL of bloody pericardial fluid, pericardial drain placed.
Elevated ESR at 51, CRP at 205
Fluid analysis�exudative
Fluid cultures pending
Continue to monitor drain output
Follow-up echo on Thursday
Hemoglobin stable at 12.8
Continue ibuprofen, colchicine -- cardiology decreased colchicine dose -- continue current dose for 3 months
Pericardial drain removed -- no leakage today
Echo done today � no reaccumulation -- plan for discharge today with cardiology follow-up
Mild bilateral pleural effusion
White count normal, afebrile
Patient is asymptomatic
Likely postinfectious
Decreased breath sounds left side base
Will monitor
Abdominal pain
CT abdomen pelvis showed evidence of gallbladder thickening,contracted gallbladder containing tiny stones and/or sludge.
Surgery consulted�suspected gallbladder thickening might be from hepatic congestion, and might be reactive in nature.
Recommend following up as outpatient as the patient's symptoms have subsided after pericardiocentesis
GERD
Continue pantoprazole
Hyperlipidemia
Continue atorvastatin
Depression/anxiety
Continue Zoloft
Xanax at bedtime
DVT prophylaxis�SCDs
Full code
Anticipated Discharge: Today
Subjective/Interval History
-
Date of Service: August 30, 2024
Objective Data
-
Labs:
Laboratory Results
08/30/24
03:01
WBC 5.8
Hgb 11.8 L
Hct 35.0 L
Plt Count 282
Sodium 139
Potassium 4.2
Chloride 105
Carbon Dioxide 22
BUN 18
Creatinine 0.8
Glucose 104 H
Calcium 8.6
Vital Signs:
Vital Signs
Temp Pulse Resp BP Pulse Ox
97.7 F 75 18 122/88 96
08/30/24 07:00 08/30/24 10:00 08/30/24 07:00 08/30/24 06:49 08/30/24 08:12
I&O
08/29/24 08/30/24 08/31/24
06:59 06:59 06:59
Intake Total 480 / 480
Output Total
Balance -1 / -1 480 / 480
Physical Exam
-
General: Well Developed, Well Nourished, No Apparent Distress and Comfortable
HEENT: Normocephalic
Respiratory: Decreased Breath Sounds (left lung base )
Cardiac: Regular Rhythm and S1/S2
GI: Soft, Nontender, Nondistended and Normal Bowel Sounds
Genito-urinary: No Costovertebral Tender
Musculoskeletal: No Clubbing, No Cyanosis and No Edema
Skin: Warm
Neuro: Awake, Alert and Oriented
Hematologic / Lymphatic: No Lymphadenopathy
Psych: Calm

Documented by User: Beck Castellanos MD 08/30/24 14:46
Subjective/Interval History
-
Date of Service: August 30, 2024
--- NOTE | 2024-08-30 10:54 | PTCARENOTE ---
0735 Rec'd Pt A,A+O x3 , denies pain, feel well. Awaiting Echo this am. Pericardial drain d/c'd yesterday, dsg to site D+I. VSS
[2024-08-30 11:04] VITALS: BP 116/80
--- NOTE | 2024-08-30 18:06 | W.DCSUMMARY ---
Discharge Summary
Discharge Data
Date of Admission: 08/26/24
Date of Discharge: 08/30/24
-
Pending Results: No
Hospital Course
Discharging Physician : Dr. Beck Castellanos, Dr. Ellen Hamilton
Disposition : Home
Primary care physician : Dr. Matias
Principal Discharge diagnosis :
Large pericardial effusion status post pericardiocentesis
Recent COVID infection
Cholelithiasis
Right bundle branch block
Chronic Discharge diagnosis :
Hyperlipidemia
GERD
Depression/anxiety
Erectile dysfunction
Hospital Course :
69-year-old male with past medical history of hyperlipidemia, right bundle branch block, GERD who presented with left costal margin pain extending to the chest and nausea. CT abdomen pelvis showed a contracted gallbladder possibly of stones and a
large pericardial effusion. Echocardiography thereafter confirmed a large pericardial effusion with evidence of hemodynamic compromise with right ventricular diastolic collapse. Of note, patient had COVID in June. Abdominal ultrasound noted
cholelithiasis with gallbladder wall thickening, negative Greer sign. Given patient's pain was predominantly on the left side, there was low suspicion for acute gallbladder pathology. However patient was advised to follow-up with outpatient
surgery. A successful echocardiographic guided pericardiocentesis was performed with removal of 850 mL of bloody pericardial fluid and a drain was placed. Patient was started on colchicine and Motrin. Chest x-ray revealed left and right sided
pleural effusion and IV Lasix was administered. Patient was improving clinically and repeat echo showed great improvement in pericardial effusion. Pericardial drain was pulled without difficulty and patient tolerated well. Due to diarrhea,
colchicine dose was reduced to 0.3 twice daily.
Today, repeat echo showed no reaccumulation of effusion. Patient is medically stable for discharge to home. Will need to follow-up with cardiology in 2 weeks for repeat echo. Patient will also need to continue taking colchicine for 3 months and
Motrin for an additional 4 days after discharge.
Important imaging findings :
Abdomen pelvis CT (08/26/2024): LARGE PERICARDIAL EFFUSION. Small bilateral pleural effusions with accompanying bilateral lower lobe opacification compatible with subsegmental atelectasis and/or pneumonia.
Somewhat contracted gallbladder containing tiny stones and/or sludge. Cannot exclude gallbladder wall thickening or pericholecystic fluid. No findings to suggest biliary tract dilatation. Consider Abdominal ultrasound for more complete evaluation,
if clinically warranted. Mild hepatomegaly. Descending colon and sigmoid diverticulosis, limited in evaluation without oral contrast. No intestinal obstruction or free air. 2.3 cm right renal cyst.
Small high attenuation density within nondilated distal small bowel, most likely differential diagnostic possibilities would be undigested medication, gallstone or foreign body.
Abdominal ultrasound (08/26/2024): Cholelithiasis with gallbladder wall thickening. Negative sonographic Greer's sign. No findings to suggest biliary tract dilatation. If there is a clinical concern for acute cholecystitis, consider Nuclear
Hepatobiliary scan.
Chest x-ray (08/27/2024): Moderate to severely enlarged cardiac silhouette secondary to a LARGE PERICARDIAL EFFUSION as seen on the prior CT examination performed 08/26/2024.
Small bilateral pleural effusions (left larger than right). Moderate subpleural airspace consolidation in the left lower lobe and mild subpleural opacity in the right lower lobe which is most likely compressive subsegmental atelectasis and scarring.
Procedure findings :
Pericardiocentesis (08/26/2024): Successful echocardiographic guided pericardiocentesis utilizing subxiphoid approach with removal of 850 mL of bloody pericardial fluid.
Discharge Plan
-
Patient Disposition: Home (Routine Discharge)
Discharge Diagnosis/Procedures: Pericardial effusion post pericardiocentesis, Recent COVID infection, Cholelithiasis, Right bundle branch block, Hyperlipidemia, GERD, depression/anxiety, erectile dysfunction
Condition: Good
Diet: Low Cholesterol
Activity: As tolerated
Bathing Restrictions: OK to Shower
Others Tests: [facility] Please report to main lobby and check in with registration, they will then direct you accordingly.
Stand Alone Forms: DC Instructions- Cath/EP Lab
Referrals:
Benigno Matias DO [Family Provider] -
Shawn Waldron MD [Active] -
Marielena Islas PA-C [Specified Professional Personl] - 09/14/24 3:00 pm (You have a cardiology follow-up appointment at the [place] office with Dr. Duncan's physician engineering inspection assistant, Marielena. Please call with questions)
Additional Discharge Medication Instructions: You should follow-up with your mothercraft nurse in 2 weeks for repeat echo.
Your abdominal ultrasound showed gall bladder stones with gall bladder wall thickening. Please follow-up with outpatient surgery.
Please do not hesitate to return to the hospital if you develop shortness of breath, chest pain, altered mental status, or fever.
Prescriptions:
New
colchicine 0.6 mg Tablet
0.3 mg PO BID Qty: 30 3RF
ibuprofen 600 mg Tablet
600 mg PO Q8 Qty: 14 0RF
famotidine 20 mg Tablet
20 mg PO DAILY Qty: 7 0RF
Continued
atorvastatin [Lipitor] 40 mg Tablet
40 mg PO QPM
alprazolam [Xanax] 0.25 mg Tablet
0.125 mg PO HS
sertraline 25 mg Tablet
37.5 mg PO DAILY
tadalafil 5 mg Tablet
5 mg PO DAILY
cyanocobalamin (vitamin B-12) 1,000 mcg Tablet
1,000 mcg PO DAILY
acetaminophen [Tylenol Extra Strength] 500 mg Tablet
1,000 mg PO BIDPRN PRN (Reason: mild pain)
ascorbic acid (vitamin C) [Vitamin C] 500 mg Tablet
500 mg PO DAILY
calcium carbonate [Tums] 200 mg calcium (500 mg) Tablet,Chewable
200 mg PO BIDPRN PRN (Reason: gerd)
loratadine [Claritin] 10 mg Tablet
10 mg PO DAILY
cholecalciferol (vitamin D3) [Vitamin D3] 25 mcg (1,000 unit) Tablet
25 mcg PO DAILY
omeprazole 20 mg Tablet,Delayed Release (Dr/Ec)
20 mg PO DAILY
Held
aspirin 81 mg Tablet,Delayed Release (Dr/Ec)
81 mg PO DAILY
Hold Instructions: Until completed course of motrin.
Discharge Orders:
Discharge Patient (As Directed); Ordered 08/30/24
Ordered By: Ellen Carnes
Care Plan Goals
Care Plan Goals:
Problem: Readiness for enhanced knowledge related to diagnosis and treatment plan
Goal: Understand your diagnosis and treatment plan needs, including medications if applicable.
Instructions: Know your diagnosis, underlying causes and treatment plan options, including medications if applicable. Consult with your health care team to learn about your diagnosis and treatment plan, including medications if applicable.
Discharge Date and Time
Discharge Date/Time: 08/30/24 12:37
Print Language: BRITISH
== END 2024-08-30 12:37 | disposition home or self-care (01) | DRG 315 ==
LOC: IVU 13:23
PROVIDERS: Clinical Nurse Specialist Family Health; Internal Medicine Cardiovascular Disease; Internal Medicine Interventional Cardiology; ADMITTING PHYSICIAN Internal Medicine; ATTENDING PHYSICIAN Internal Medicine; CONSULT PHYSICIAN Internal Medicine Cardiovascular Disease; CONSULT PHYSICIAN Surgery; EMERGENCY PHYSICIAN Emergency Medicine; FAMILY PHYSICIAN Family Medicine
PROC: 0W9D30Z Drainage of Pericardial Cavity with Drainage Device, Percutaneous Approach (ICD-10-PCS; 2024-08-26)
DX: I31.39 Other pericardial effusion (noninflammatory) (principal); J90 Pleural effusion, not elsewhere classified; U09.9 Post COVID-19 condition, unspecified; E78.00 Pure hypercholesterolemia, unspecified; F32.A Depression, unspecified; F41.9 Anxiety disorder, unspecified; I45.10 Unspecified right bundle-branch block; I31.4 Cardiac tamponade; K80.20 Calculus of gallbladder without cholecystitis without obstruction; Z88.2 Allergy status to sulfonamides; Z88.1 Allergy status to other antibiotic agents; Z82.49 Family history of ischemic heart disease and other diseases of the circulatory system; Z79.899 Other long term (current) drug therapy; Z11.52 Encounter for screening for COVID-19
CPT/HCPCS: 88305; 93308; 33016; 71046; 74177; 76705; 80048; 80053; 80061; 81003; 81015; 82248; 82945; 83615; 83690; 83880; 84157; 84484; 85014; 85025; 85652; 86140; 86803; 87015; 87070; 87102; 87116; 87205; 87206; 87502; 87811; 88112; 89051; 93005; 93306; 96365; 99285; C1894; Q9967

== ENCOUNTER → 2024-09-06 10:14 | Outpatient (REF) | payer MEDICARE, SELFPAY | LOC: RCS 10:14 | PROVIDERS: ATTENDING PHYSICIAN Internal Medicine Cardiovascular Disease; FAMILY PHYSICIAN Family Medicine | DX: I31.39 Other pericardial effusion (noninflammatory) (principal) | CPT/HCPCS: 93308 ==

== ENCOUNTER → 2024-09-19 07:33 | Outpatient (REF) | payer MEDICARE, SELFPAY ==
[2024-09-19 09:07] LABS: ALT (SGPT) 23 U/L (0-50); AST (SGOT) 19 U/L (17-59); Alkaline Phosphatase 89 U/L (38-126); Blood Urea Nitrogen 17 mg/dl (9-20); Calcium 9.6 mg/dl (8.4-10.2); Carbon Dioxide 25 mmol/L (22-30); Chloride 101 mmol/L (98-107); HDL Cholesterol 37 mg/dl; LDL Cholesterol, Calculated 32 mg/dl; Potassium 4.2 mmol/L (3.5-5.1); Sodium 137 mmol/L (135-145); Total Bilirubin 1.2 mg/dl (0.2-1.3); Total Cholesterol 85 mg/dl (50-199); Triglyceride 82 mg/dl (10-149); Very Low Density Lipoprotein 16 mg/dl (0-30); eGFR > 60.00
[2024-09-19 09:23] LABS: Glucose 111 mg/dl (70-99)
== END ==
LOC: REG 07:33
PROVIDERS: ATTENDING PHYSICIAN Family Medicine
DX: E78.5 Hyperlipidemia, unspecified (principal)
CPT/HCPCS: 36415; 80053; 80061

== ENCOUNTER → 2024-11-23 06:33 | Outpatient (REF) | payer MEDICARE, SELFPAY | LOC: RAD 06:33 | PROVIDERS: ATTENDING PHYSICIAN Surgery; FAMILY PHYSICIAN Family Medicine | DX: K80.20 Calculus of gallbladder without cholecystitis without obstruction (principal) | CPT/HCPCS: 76700 ==

== ENCOUNTER → 2024-12-22 08:36 | Outpatient (REF) | payer MEDICARE, SELFPAY | LOC: RCS 08:36 | PROVIDERS: ATTENDING PHYSICIAN Internal Medicine Cardiovascular Disease; FAMILY PHYSICIAN Family Medicine | DX: I31.39 Other pericardial effusion (noninflammatory) (principal) | CPT/HCPCS: 93308; 93321; 93325 ==